=== PATIENT | female | born 1970 | race American Indian/Alaskan Native ===

== ENCOUNTER 2016-08-05 10:08 | Emergency (ER) | payer BC, OTHER ==
[2016-08-05 10:40] VITALS: BP 132/86
--- NOTE | 2016-08-05 15:21 | Emergency Department Report ---
Chief Complaint: Sore Throat Stated Complaint: HEADACHE/SORE THROAT/BODY ACHES Time Seen by Provider: 08/05/16 14:42 - HPI History of Present Illness: 46-year-old female presents today with sore throat, cold symptoms, body aches 2 days. Positive for fever, Tmax = 100. Positive for nasal congestion and painful swallowing. Tried Mucinex without relief. Denies sick contacts. Denies nausea, vomiting, shortness of breath, chest pain, abdominal pain. - ROS Review of Systems: Per HPI - Exam Vital Signs: Vital Signs 08/05/16 10:36 Temperature 98.5 F Pulse Rate 94 H Respiratory 20 Rate Blood Pressure 132/86 O2 Sat by Pulse 99 Oximetry Physical Exam: GENERAL: The patient is well-developed and well-nourished. Patient is in NAD. HEAD: Normocephalic. Atraumatic. EYES: PERRL. EARS: External auditory canals and tympanic membranes clear; hearing grossly intact. NOSE: Normal nasal mucosa with no nasal discharge. THROAT: No erythema, swelling or exudates. NECK: Supple, nontender, without lymphadenopathy. CHEST/LUNGS: Clear to auscultation throughout. HEART/CARDIOVASCULAR: Regular rate and rhythm. No murmurs, rubs or gallops. ABDOMEN: Abdomen is soft, nontender. No guarding or rebound tenderness. EXTREMITIES: Peripheral pulses intact. Capillary refill less than 2 seconds. NEURO: Alert and oriented x 3. Normal gait. MSE screening note: Focused history and physical exam performed. Due to findings the following was ordered: ED Disposition for MSE Disposition: MEDICAL SCREENING EXAM-LEFT Condition: Stable Referrals: PRIMARY CARE, [Primary Care Provider] - 3-5 Days
== END 2016-08-05 15:21 | disposition left against medical advice (07) ==
LOC: ED 10:08
DX: J02.9 Acute pharyngitis, unspecified (principal); M79.1 Myalgia; R50.9 Fever, unspecified; Z53.21 Procedure and treatment not carried out due to patient leaving prior to being seen by health care provider

== ENCOUNTER 2016-12-04 17:12 | Emergency (ER) | payer BC ==
[2016-12-04] MEDS ORDERED: MOTRIN ONE (17:19)
[2016-12-04] MEDS ORDERED: MOTRIN PO ONE (17:27)
[2016-12-04 19:10] LABS: Bilirubin,Urine NEG (Negative); Blood,Urine NEG (Negative); Ketones,Urine NEG (Negative); Leukocyte Esterase,Urine NEG (Negative); Nitrite,Urine NEG (Negative); Protein,Urine <15 mg/dL mg/dL (Negative); RBC,Urine < 1.0 /HPF (0.0-6.0); Urobilinogen,Urine < 2.0 mg/dL (<2.0)
[2016-12-04] MEDS ORDERED: ULTRAM PO ONE (19:19)
--- NOTE | 2016-12-04 19:44 | Emergency Department Report ---
ED Back Pain/Injury HPI - General Chief Complaint: Back Pain/Injury Stated Complaint: BACK PAIN Source: patient Limitations: No Limitations - History of Present Illness Initial Comments: 46-year-old female presents complaining of 2 days of left-sided back pain. Patient denies any fevers chills no nausea no vomiting. Denies any recent trauma. Denies any upper or lower extremity paresthesias. Denies any saddle paresthesias. Denies any bladder or bowel incontinence. Denies any falls. No direct trauma to the back reported by the patient. 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 Patient's pain is slightly worse with rotation of her trunk. Patient not on any blood thinners denies any associated shortness of breath chest pain nausea or vomiting associated with the pain. Denies any rash. MD Complaint: back pain Onset/Timin -: days(s) Similar Symptoms Previously: Yes Place: work Radiation: buttocks Severity: moderate Severity scale (0 -10): 7 Quality: aching Consistency: intermittent Worsens With: movement Context: while lifting, turning/twisting - Related Data Previous Rx's Medication Instructions Recorded Last Taken Type Cyclobenzaprine [Flexeril] 10 mg PO TID PRN #15 tablet 06/24/16 Unknown Rx Ibuprofen [Motrin 800 MG tab] 800 mg PO Q8HR PRN #25 tablet 06/24/16 Unknown Rx Cyclobenzaprine [Flexeril] 10 mg PO TID PRN #15 tablet 12/04/16 Unknown Rx Naproxen [Naprosyn TAB] 500 mg PO BID PRN #30 tablet 12/04/16 Unknown Rx Allergies Allergy/AdvReac Type Severity Reaction Status Date / Time acetaminophen [From Lortab] Allergy Itching Verified 06/24/16 01:43 hydrocodone bitartrate Allergy Itching Verified 06/24/16 01:43 [From Lortab] iodine Allergy Swelling Verified 06/24/16 01:43 ED Review of Systems ROS: Stated complaint: BACK PAIN Other details as noted in HPI Constitutional: denies: chills, fever Eyes: denies: eye pain, eye discharge, vision change ENT: denies: ear pain, throat pain Respiratory: denies: cough, shortness of breath, wheezing Cardiovascular: denies: chest pain, palpitations Endocrine: no symptoms reported Gastrointestinal: denies: abdominal pain, nausea, diarrhea Genitourinary: denies: urgency, dysuria, discharge Musculoskeletal: back pain. denies: joint swelling, arthralgia Skin: denies: rash, lesions Neurological: denies: headache, weakness, paresthesias Psychiatric: denies: anxiety, depression Hematological/Lymphatic: denies: easy bleeding, easy bruising ED Past Medical Hx - Surgical History Additional Surgical History: c section - Social History Smoking Status: Never Smoker Substance Use Type: None - Medications Home Medications: Home Medications Medication Instructions Recorded Confirmed Last Taken Type Cyclobenzaprine [Flexeril] 10 mg PO TID PRN #15 tablet 06/24/16 Unknown Rx Ibuprofen [Motrin 800 MG tab] 800 mg PO Q8HR PRN #25 tablet 06/24/16 Unknown Rx Cyclobenzaprine [Flexeril] 10 mg PO TID PRN #15 tablet 12/04/16 Unknown Rx Naproxen [Naprosyn TAB] 500 mg PO BID PRN #30 tablet 12/04/16 Unknown Rx ED Physical Exam - General Limitations: No Limitations General appearance: alert, in no apparent distress - Head Head exam: Present: atraumatic, normocephalic - Eye Eye exam: Present: normal appearance, PERRL, EOMI - ENT ENT exam: Present: mucous membranes moist - Neck Neck exam: Present: normal inspection - Respiratory Respiratory exam: Present: normal lung sounds bilaterally. Absent: respiratory distress - Cardiovascular Cardiovascular Exam: Present: regular rate, normal rhythm. Absent: systolic murmur, diastolic murmur, rubs, gallop - GI/Abdominal GI/Abdominal exam: Present: soft, normal bowel sounds - Extremities Exam Extremities exam: Present: normal inspection - Back Exam Back exam: Present: normal inspection, tenderness, paraspinal tenderness (mild left-sided lumbar paraspinal tenderness no midline tenderness no evidence of cellulitis no CVA tenderness on clinical exam. Range of motion lateral rotation and flexion and extension of back intact but slightly worse with rotation to the left) - Neurological Exam Neurological exam: Present: alert, oriented X3, CN II-XII intact, normal gait - Psychiatric Psychiatric exam: Present: normal affect, normal mood - Skin Skin exam: Present: warm, dry, intact, normal color. Absent: rash ED Course Vital Signs 12/04/16 12/04/16 12/04/16 17:15 19:24 21:45 Temperature 98.5 F 98.1 F Pulse Rate 102 H 69 Respiratory 20 18 20 Rate Blood Pressure 158/104 Blood Pressure 138/84 [Left] O2 Sat by Pulse 100 99 Oximetry ED Medical Decision Making - Lab Data Result diagrams: 12/04/16 19:38 - Medical Decision Making a/p: lower back pain/sciatica 1- will provide symptomatic relief with trial of NSAIDS,flexeril 2- no neurovascular deficits on PE, no saddle paraesthesias, no bladder overflow , no bowel incontience. Pt denies any fever, chill, dysruia or IV drug use. Pain likely from chronic degenerative spinal disease. 3- BMP and UA WNL Critical care attestation.: If time is entered above; I have spent that time in minutes in the direct care of this critically ill patient, excluding procedure time. ED Disposition Clinical Impression: Lower back pain Qualifiers: Chronicity: acute Back pain laterality: left Sciatica presence: with sciatica Sciatica laterality: sciatica of left side Qualified Code(s): M54.42 - Lumbago with sciatica, left side Disposition: DISCHARGED TO HOME OR SELFCARE Is pt being admited?: No Does the pt Need Aspirin: No Condition: Stable Instructions: Acute Low Back Pain (ED) Prescriptions: Cyclobenzaprine [Flexeril] 10 mg PO TID PRN #15 tablet PRN Reason: Muscle Spasm Naproxen [Naprosyn TAB] 500 mg PO BID PRN #30 tablet PRN Reason: Pain Referrals: [facility] [Outside] - 3-5 Days [facility] [Outside] - 3-5 Days RIGOBERTO KAMARA MD [Staff Physician] - 3-5 Days DULCE MARIA BROWN MD [Staff Physician] - 3-5 Days Forms: Accompanied Note, Work/School Release Form(ED) Time of Disposition: 21:32
[2016-12-04 20:39] LABS: Anion Gap 16 mmol/L; Blood Urea Nitrogen 11 mg/dL (7-17); Calcium 9.1 mg/dL (8.4-10.2); Carbon Dioxide 27 mmol/L (22-30); Chloride 100.9 mmol/L (98-107); Creatine Kinase 309 units/L (30-135); Glucose 80 mg/dL (65-100); Potassium 3.9 mmol/L (3.6-5.0); Sodium 140 mmol/L (137-145)
[2016-12-04 21:45] VITALS: BP 138/84
== END 2016-12-04 21:45 | disposition home or self-care (01) ==
LOC: ED 17:12
DX: M54.42 Lumbago with sciatica, left side (principal); Z88.8 Allergy status to other drugs, medicaments and biological substances; Z91.02 Food additives allergy status
CPT/HCPCS: 36415; 80048; 81001; 82550; 99283

== ENCOUNTER 2016-12-25 09:14 | Outpatient (CLI) | payer BC ==
--- NOTE | 2016-12-25 11:03 | Mammography Report ---
Bilateral mammogram: No previous studies are labeled. CAD study utilized. Findings: Predominance adipose tissue bilaterally. 2 cm circumscribed focal asymmetry noted at left posterior breast and at subareolar area right breast. No microcalcifications appear normal axilla. Impression: Degenerative circumscribed density right and left breast. Recommend comparison with previous study. If previous studies not available spot mag and sonographic examination is advised. BI-RADS CATEGORY: 0 = Needs additional imaging evaluation ACR BI-RADS MAMMOGRAPHIC CODES: 0 = Needs additional imaging evaluation; 1 = Negative; 2 = Benign; 3 = Probably benign; 4 = Suspicious; 5 = Malignant; 6 = Known biopsy-proven malignancy COMMENT: 1. Dense breast tissue, i.e., adenosis, fibrocystic changes, etc., may obscure an underlying neoplasm. 2. Approximately 10% of cancers are not detected with mammography. 3. A negative mammography report should not delay biopsy if a clinically suspicious mass is present. COMMENT: Patient follow-up letters are generated in [place]. Benign findings. Annual followup recommended.
== END 2016-12-25 09:15 | disposition home or self-care (01) ==
LOC: MAMMO 09:14
PROVIDERS: ATTEND Obstetrics & Gynecology
DX: Z12.31 Encounter for screening mammogram for malignant neoplasm of breast (principal)
CPT/HCPCS: 77067; G0202

== ENCOUNTER 2017-01-11 08:07 | Outpatient (CLI) | payer BC ==
--- NOTE | 2017-01-11 08:55 | Mammography Report ---
Bilateral mammogram: Based on bilateral asymmetries identified on recent screening exam of December 25 additional spot cc compression imaging of each breast is performed. No persistent asymmetry identified. The fibroglandular pattern in the area of concern appears unremarkable bilaterally. Impression: Unremarkable exam. Recommendation: Annual mammogram followup. BI-RADS CATEGORY: 1 = Negative ACR BI-RADS MAMMOGRAPHIC CODES: 0 = Needs additional imaging evaluation; 1 = Negative; 2 = Benign; 3 = Probably benign; 4 = Suspicious; 5 = Malignant; 6 = Known biopsy-proven malignancy COMMENT: 1. Dense breast tissue, i.e., adenosis, fibrocystic changes, etc., may obscure an underlying neoplasm. 2. Approximately 10% of cancers are not detected with mammography. 3. A negative mammography report should not delay biopsy if a clinically suspicious mass is present.
--- NOTE | 2017-01-11 09:28 | Ultrasound Report ---
ULTRASOUND PELVIS COMPLETE - TRANSABDOMINAL AND TRANSVAGINAL: INDICATION: DUB. History of fibroids. COMPARISON: None similar. FINDINGS: Transabdominal and transvaginal pelvic sonography performed in this patient with LMP of 12/16/2016 demonstrates a 13 x 4.3 x 5.5 cm anteverted uterus. At least 2 fibroids superiorly to the right, the larger at the fundus 1.8 x 1.5 cm, while the smaller anteriorly is approximately 1.3 x 0.8 cm, image 14. Few minimal nonspecific floating echoes within the urinary bladder/possible debris. Approximately 1 cm nabothian cyst. No significant pelvic free fluid. Physiologic ovaries, approximately 2.5 x 1.3 x 1.4 cm on the right and 1.9 x 1.3 x 1.3 cm on the left. CONCLUSION: No acute pelvic sonographic abnormality with 2 small fibroids incidentally noted and few other findings, as above. Please correlate. Thank you for the opportunity to participate in this patient's care.
== END 2017-01-11 08:08 | disposition home or self-care (01) ==
LOC: US 08:07
PROVIDERS: ATTEND Obstetrics & Gynecology
DX: N92.0 Excessive and frequent menstruation with regular cycle (principal); R92.2 Inconclusive mammogram
CPT/HCPCS: 76830; 76856; G0204; 77066

== ENCOUNTER 2017-01-27 13:43 | Emergency (ER) | payer BC ==
[2017-01-27] MEDS ORDERED: REGLAN IV ONE (17:04)
[2017-01-27] MEDS ORDERED: MAGNESIUM SULFATE 2GM/50ML 2 GM/50 ML BAG IV ONE (17:04)
[2017-01-27] MEDS ORDERED: BENADRYL IV ONE (17:04)
[2017-01-27] MEDS ORDERED: TORADOL IV ONE (17:04)
--- NOTE | 2017-01-27 17:05 | Emergency Department Report ---
ED General Adult HPI - General Chief complaint: Headache Stated complaint: HEADACHE AND PAIN IN RIGHT EYE Time Seen by Provider: 01/27/17 16:55 Source: patient, RN notes reviewed Mode of arrival: Ambulatory Limitations: No Limitations - History of Present Illness Initial comments: This is a 46-year-old female. She is previously unknown to me. The patient reports that she is not . She denies chronic medical conditions with the exception of chronic headaches. She reports that she gets headaches twice a week. She presents to the ER complaining of her typical migraine headache. The headache is throbbing and right-sided and retro-orbital. It is not sudden or thunderclap in nature. It did not reach maximal intensity within an hour. It is similar to prior headaches only more intense. She describes right-sided retro-orbital pain. She has sensitivity to lights and sounds. There is no neck pain, neck stiffness, loss of vision, weakness or numbness. It is not the worse headache of her life, she reports a headache that was worse a few months ago. -: Gradual Location: head, face, eyes Consistency: constant Improves with: rest Worsens with: other (exposure to light and sound) Associated Symptoms: headaches - Related Data Previous Rx's Medication Instructions Recorded Last Taken Type Cyclobenzaprine [Flexeril] 10 mg PO TID PRN #15 tablet 06/24/16 Unknown Rx Ibuprofen [Motrin 800 MG tab] 800 mg PO Q8HR PRN #25 tablet 06/24/16 Unknown Rx Cyclobenzaprine [Flexeril] 10 mg PO TID PRN #15 tablet 12/04/16 Unknown Rx Naproxen [Naprosyn TAB] 500 mg PO BID PRN #30 tablet 12/04/16 Unknown Rx Allergies Allergy/AdvReac Type Severity Reaction Status Date / Time acetaminophen [From Lortab] Allergy Itching Verified 01/27/17 14:02 hydrocodone bitartrate Allergy Itching Verified 01/27/17 14:02 [From Lortab] iodine Allergy Swelling Verified 01/27/17 14:02 ED Review of Systems ROS: Stated complaint: HEADACHE AND PAIN IN RIGHT EYE Other details as noted in HPI Constitutional: malaise. denies: fever Eyes: denies: eye discharge ENT: denies: epistaxis Respiratory: denies: cough Cardiovascular: denies: chest pain Gastrointestinal: denies: vomiting Genitourinary: as per HPI Musculoskeletal: as per HPI Skin: as per HPI Neurological: headache Psychiatric: as per HPI ED Past Medical Hx - Past Medical History Hx Headaches / Migraines: Yes - Surgical History Additional Surgical History: c section X 4. TUBAL LIGATION. TONSILLECTOMY - Social History Smoking Status: Never Smoker Substance Use Type: Alcohol - Medications Home Medications: Home Medications Medication Instructions Recorded Confirmed Last Taken Type Cyclobenzaprine [Flexeril] 10 mg PO TID PRN #15 tablet 06/24/16 Unknown Rx Ibuprofen [Motrin 800 MG tab] 800 mg PO Q8HR PRN #25 tablet 06/24/16 Unknown Rx Cyclobenzaprine [Flexeril] 10 mg PO TID PRN #15 tablet 12/04/16 Unknown Rx Naproxen [Naprosyn TAB] 500 mg PO BID PRN #30 tablet 12/04/16 Unknown Rx ED Physical Exam - General Limitations: No Limitations General appearance: alert, in no apparent distress - Head Head exam: Present: atraumatic, normocephalic - Eye Eye exam: Present: normal appearance, PERRL, EOMI, other (visual acuity intact to finger counting, color perception, reading at a close distance). Absent: nystagmus - ENT ENT exam: Present: normal exam, normal orophraynx, mucous membranes moist, normal external ear exam - Neck Neck exam: Present: normal inspection, full ROM. Absent: tenderness, meningismus - Respiratory Respiratory exam: Present: normal lung sounds bilaterally. Absent: respiratory distress, wheezes, rales, rhonchi, stridor, chest wall tenderness, accessory muscle use, decreased breath sounds, prolonged expiratory - Cardiovascular Cardiovascular Exam: Present: regular rate, normal rhythm, normal heart sounds. Absent: bradycardia, tachycardia, irregular rhythm, systolic murmur, diastolic murmur, rubs, gallop - GI/Abdominal GI/Abdominal exam: Present: soft, normal bowel sounds. Absent: distended, tenderness, guarding, rebound, rigid, pulsatile mass - Extremities Exam Extremities exam: Present: normal inspection, full ROM, normal capillary refill. Absent: tenderness, pedal edema, joint swelling, calf tenderness - Back Exam Back exam: Present: normal inspection, full ROM. Absent: tenderness, CVA tenderness (R), CVA tenderness (L), muscle spasm, paraspinal tenderness, vertebral tenderness - Neurological Exam Neurological exam: Present: alert, oriented X3, normal gait, other (Extraocular movements intact. Tongue midline. No facial droop. Facial sensation intact to light touch in the V1, V2, V3 distribution bilaterally. 5 and 5 strength in 4 extremities.. Sensation is intact to light touch in 4 extremities.). Absent : motor sensory deficit - Psychiatric Psychiatric exam: Present: normal affect, normal mood - Skin Skin exam: Present: warm, dry, intact, normal color. Absent: rash ED Course Vital Signs 01/27/17 01/27/17 13:59 17:43 Temperature 98.5 F Pulse Rate 87 66 Respiratory 18 16 Rate Blood Pressure 137/94 Blood Pressure 146/85 [Left] O2 Sat by Pulse 98 99 Oximetry - Reevaluation(s) Reevaluation #1: 01/27/17 17:43 Differential diagnosis: Migraine headache, tension headache, cluster headache, multifactorial headache Assessment and plan: 46-year-old female with probable migraine/cluster headache. She is afebrile with reassuring vital signs, has a GCS of 15, with an NIH score of 0, and is speaking on a cellular phone without difficulty. She will be treated symptomatically. We will reassess after medications have been administered. Reevaluation #2: 01/27/17 18:24 the patient is reassessed. She is sleeping comfortably. She rates her headache as a "0 out of 10." She reports that her headache has completely resolved. Her repeat neurologic examination is unremarkable and she walks with steady gait. She will be discharged with instructions to follow up with outpatient primary care and/or neurology specialist. ED Medical Decision Making - Lab Data Vital Signs 01/27/17 01/27/17 13:59 17:43 Temperature 98.5 F Pulse Rate 87 66 Respiratory 18 16 Rate Blood Pressure 137/94 Blood Pressure 146/85 [Left] O2 Sat by Pulse 98 99 Oximetry Critical care attestation.: If time is entered above; I have spent that time in minutes in the direct care of this critically ill patient, excluding procedure time. ED Disposition Clinical Impression: Headache Disposition: DC-01 TO HOME OR SELFCARE Is pt being admited?: No Does the pt Need Aspirin: No Condition: Stable Instructions: Cluster Headache (ED) Additional Instructions: Take Motrin, 600 mg every 6 hours with food as needed for headache. Follow up with either primary care doctor or neurology specialist. Follow-up with the primary care doctor or neurology specialist within the next 2-3 weeks. Avoid consumption of caffeine. Return to the ER right away with new pain, worsened pain, migration of pain, fevers, chills, intractable nausea or vomiting, confusion, inability to tolerate liquid feeds, new, worsening or different symptoms. Return to the ER right away with weakness/ numbness/unsteady gait. Referrals: ANTHONY PEREZ MD [Staff Physician] - 3-5 Days BRICE ROY MD [Staff Physician] - 3-5 Days PRIMARY MD VICTOR HUGO [Primary Care Provider] - 3-5 Days THERESA MAGALLON MD [Staff Physician] - 3-5 Days Forms: Work/School Release Form(ED)
[2017-01-27 17:43] VITALS: BP 146/85
== END 2017-01-27 18:42 | disposition home or self-care (01) ==
LOC: ED 13:43
DX: R51 Headache (principal)
CPT/HCPCS: 96365; 96375; 99283; J1200; J1885; J2765; J2930; J3475

== ENCOUNTER 2017-04-07 10:13 | Emergency (ER) | payer BC ==
[2017-04-07 10:42] VITALS: BP 157/103
== END 2017-04-07 12:50 | disposition left against medical advice (07) ==
LOC: ED 10:13
DX: R51 Headache (principal); Z53.21 Procedure and treatment not carried out due to patient leaving prior to being seen by health care provider

== ENCOUNTER 2017-06-23 21:47 | Emergency (ER) | payer BC ==
[2017-06-24 03:53] VITALS: BP 136/76
[2017-06-24] MEDS ORDERED: MOTRIN PO ONE (03:54)
[2017-06-24] MEDS ORDERED: AUGMENTIN 875 MG PO ONE (03:54)
--- NOTE | 2017-06-24 03:55 | Emergency Department Report ---
- General Chief Complaint: Extremity Injury, Upper Stated Complaint: FLU LIKE SYMPTOMS Time Seen by Provider: 06/24/17 02:31 Source: patient Mode of arrival: Ambulatory Limitations: No Limitations - History of Present Illness Initial Comments: 47-year-old female past medical history headaches, migraines presents with complaint of one day of earache sore throat and body aches. States she is concerned she may have the flu. Patient is awake alert and oriented 3 not in acute distress. Denies chest pain shortness of breath palpitations abdominal pain vomiting increased urinary frequency or dysuria. Patient states that she felt somewhat nauseous earlier today. lmp 04/09/17 Complaint: fever Onset/Timin -: days(s) Severity: moderate Quality: aching Consistency: constant Improves With: nothing Worsens With: nothing Associated Symptoms: denies other symptoms, sore throat Treatments Prior to Arrival: none - Related Data Previous Rx's Medication Instructions Recorded Last Taken Type Cyclobenzaprine [Flexeril] 10 mg PO TID PRN #15 tablet 06/24/16 Unknown Rx Ibuprofen [Motrin 800 MG tab] 800 mg PO Q8HR PRN #25 tablet 06/24/16 Unknown Rx Cyclobenzaprine [Flexeril] 10 mg PO TID PRN #15 tablet 12/04/16 Unknown Rx Naproxen [Naprosyn TAB] 500 mg PO BID PRN #30 tablet 12/04/16 Unknown Rx Amoxicillin/Potassium Clav 1 each PO BID #14 tablet 06/24/17 Unknown Rx [Augmentin 875-125 Tablet] Ibuprofen [Motrin] 800 mg PO Q8HR PRN #30 tablet 06/24/17 Unknown Rx Allergies Allergy/AdvReac Type Severity Reaction Status Date / Time acetaminophen [From Lortab] Allergy Itching Verified 04/07/17 10:40 hydrocodone bitartrate Allergy Itching Verified 04/07/17 10:40 [From Lortab] iodine Allergy Swelling Verified 04/07/17 10:40 ED Review of Systems ROS: Stated complaint: FLU LIKE SYMPTOMS Other details as noted in HPI Constitutional: denies: chills, fever Eyes: denies: eye pain, eye discharge, vision change ENT: ear pain (left ear). denies: throat pain Respiratory: denies: cough, shortness of breath, wheezing Cardiovascular: denies: chest pain, palpitations Endocrine: no symptoms reported Gastrointestinal: denies: abdominal pain, nausea, diarrhea Genitourinary: denies: urgency, dysuria, discharge Musculoskeletal: denies: back pain, joint swelling, arthralgia Skin: denies: rash, lesions Neurological: denies: headache, weakness, paresthesias Psychiatric: denies: anxiety, depression Hematological/Lymphatic: denies: easy bleeding, easy bruising ED Past Medical Hx - Past Medical History Previous Medical History?: Yes Hx Headaches / Migraines: Yes - Surgical History Past Surgical History?: Yes Additional Surgical History: c section X 4. TUBAL LIGATION. TONSILLECTOMY - Social History Smoking Status: Never Smoker - Medications Home Medications: Home Medications Medication Instructions Recorded Confirmed Last Taken Type Cyclobenzaprine [Flexeril] 10 mg PO TID PRN #15 tablet 06/24/16 Unknown Rx Ibuprofen [Motrin 800 MG tab] 800 mg PO Q8HR PRN #25 tablet 06/24/16 Unknown Rx Cyclobenzaprine [Flexeril] 10 mg PO TID PRN #15 tablet 12/04/16 Unknown Rx Naproxen [Naprosyn TAB] 500 mg PO BID PRN #30 tablet 12/04/16 Unknown Rx Amoxicillin/Potassium Clav 1 each PO BID #14 tablet 06/24/17 Unknown Rx [Augmentin 875-125 Tablet] Ibuprofen [Motrin] 800 mg PO Q8HR PRN #30 tablet 06/24/17 Unknown Rx ED Physical Exam - General Limitations: No Limitations General appearance: alert, in no apparent distress - Head Head exam: Present: atraumatic, normocephalic - Eye Eye exam: Present: normal appearance, PERRL, EOMI - ENT ENT exam: Present: mucous membranes moist - Expanded ENT Exam Expanded TM/Canal exam: Erythema: Right TM, Left TM (both tympanic membranes injected, no clinical signs of mastoiditis on exam), Bulging: Right TM Mouth exam: Present: normal external inspection Teeth exam: Present: normal inspection Throat exam: Positive: normal inspection - Neck Neck exam: Present: normal inspection, full ROM - Respiratory Respiratory exam: Present: normal lung sounds bilaterally. Absent: respiratory distress - Cardiovascular Cardiovascular Exam: Present: regular rate, normal rhythm. Absent: systolic murmur, diastolic murmur, rubs, gallop - GI/Abdominal GI/Abdominal exam: Present: soft, normal bowel sounds - Extremities Exam Extremities exam: Present: normal inspection - Back Exam Back exam: Present: normal inspection - Neurological Exam Neurological exam: Present: alert, oriented X3 - Psychiatric Psychiatric exam: Present: normal affect, normal mood - Skin Skin exam: Present: warm, dry, intact, normal color. Absent: rash ED Course Vital Signs 06/23/17 06/24/17 23:22 03:50 Temperature 99.7 F H 98.7 F Pulse Rate 103 H 95 H Respiratory 16 18 Rate Blood Pressure 136/94 Blood Pressure 136/76 [Left] O2 Sat by Pulse 96 100 Oximetry ED Medical Decision Making - Medical Decision Making A/P: Right-sided otitis media 1-empiric tx with Augmentin, motrin PRN 2-follow up with primary care doctor 3-flu swab negative Critical care attestation.: If time is entered above; I have spent that time in minutes in the direct care of this critically ill patient, excluding procedure time. ED Disposition Clinical Impression: Otitis media Qualifiers: Otitis media type: suppurative Chronicity: acute Laterality: right Recurrence: not specified as recurrent Spontaneous tympanic membrane rupture: without spontaneous rupture Qualified Code(s): H66.001 - Acute suppurative otitis media without spontaneous rupture of ear drum, right ear Disposition: - TO HOME OR SELFCARE Is pt being admited?: No Does the pt Need Aspirin: No Condition: Stable Instructions: Otitis Media (ED) Prescriptions: Amoxicillin/Potassium Clav [Augmentin 875-125 Tablet] 1 each PO BID #14 tablet Ibuprofen [Motrin] 800 mg PO Q8HR PRN #30 tablet PRN Reason: Pain Referrals: THERESA MAGALLON MD [Staff Physician] - 3-[address] [facility] [place] [Outside] - 3-5 Days [facility] [Outside] - 3-5 Days Forms: Work/School Release Form(ED) Time of Disposition: 04:25
== END 2017-06-24 05:00 | disposition home or self-care (01) ==
LOC: ED 21:47
DX: H66.001 Acute suppurative otitis media without spontaneous rupture of ear drum, right ear (principal); G43.909 Migraine, unspecified, not intractable, without status migrainosus
CPT/HCPCS: 87400; 99282

== ENCOUNTER 2017-09-20 23:35 | Emergency (ER) | payer SELFPAY ==
[2017-09-21 02:10] VITALS: BP 154/88
[2017-09-21 02:51] LABS: Basophils % (Auto) 0.6 % (0.0-1.8); Eosinophils # (Auto) 0.2 K/mm3 (0.0-0.4); Eosinophils % (Auto) 2.5 % (0.0-4.3); Hematocrit 36.2 % (30.3-42.9); Hemoglobin 11.7 gm/dl (10.1-14.3); Lymphocytes # (Auto) 2.5 K/mm3 (1.2-5.4); Lymphocytes % (Auto) 32.5 % (13.4-35.0); Mean Corpuscular HGB Conc 32 % (30-34); Mean Corpuscular Hemoglobin 26 pg (28-32); Mean Corpuscular Volume 81 fl (79-97); Monocytes # (Auto) 0.9 K/mm3 (0.0-0.8); Monocytes % (Auto) 11.5 % (0.0-7.3); Platelet Count 230 K/mm3 (140-440); Red Blood Count 4.46 M/mm3 (3.65-5.03); Red Cell Distribution Width 16.5 % (13.2-15.2)
[2017-09-21 12:41] LABS: Alanine Aminotransferase 13 units/L (7-56); BUN/Creatinine Ratio 15; Blood Urea Nitrogen 12 mg/dL (7-17); Calcium 8.9 mg/dL (8.4-10.2); Hemolysis Index 4; Lipase 38 units/L (13-60)
== END 2017-09-21 02:45 | disposition left against medical advice (07) ==
LOC: ED 23:35
DX: R10.9 Unspecified abdominal pain (principal); Z53.21 Procedure and treatment not carried out due to patient leaving prior to being seen by health care provider
CPT/HCPCS: 36415; 80053; 83690; 84703; 85025

== ENCOUNTER 2018-01-19 18:01 | Emergency (ER) | payer SELFPAY ==
[2018-01-19 18:27] VITALS: BP 133/96
--- NOTE | 2018-01-19 19:04 | XRay Report ---
FINAL REPORT PROCEDURE: XR SHOULDER 2+V RT TECHNIQUE: Right shoulder, three views HISTORY: right shoulder injury and swelling COMPARISON: No prior studies are available for comparison. FINDINGS: No acute fracture or dislocation is seen. No focal osseous lesions. IMPRESSION: No acute osseous abnormality is identified
--- NOTE | 2018-01-19 20:06 | Emergency Department Report ---
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 denies: numbness, paresthesias ED Past Medical Hx - Past Medical History Previous Medical History?: Yes Hx Headaches / Migraines: Yes - Surgical History Past Surgical History?: Yes Additional Surgical History: c section X 4. TUBAL LIGATION. TONSILLECTOMY - Social History Smoking Status: Never Smoker Substance Use Type: Alcohol - Medications Home Medications: Home Medications Medication Instructions Recorded Confirmed Last Taken Type Cyclobenzaprine [Flexeril] 10 mg PO TID PRN #15 tablet 06/24/16 Unknown Rx Ibuprofen [Motrin 800 MG tab] 800 mg PO Q8HR PRN #25 tablet 06/24/16 Unknown Rx Cyclobenzaprine [Flexeril] 10 mg PO TID PRN #15 tablet 12/04/16 Unknown Rx Naproxen [Naprosyn TAB] 500 mg PO BID PRN #30 tablet 12/04/16 Unknown Rx Amoxicillin/Potassium Clav 1 each PO BID #14 tablet 06/24/17 Unknown Rx [Augmentin 875-125 Tablet] Ibuprofen [Motrin] 800 mg PO Q8HR PRN #30 tablet 06/24/17 Unknown Rx Ibuprofen 800 mg PO QID 5 Days #20 tablet 01/19/18 Unknown Rx Upper Extremity Exam - Exam General: Vital signs noted. No distress. Alert and acting appropriately. Shoulder Exam: Yes Shoulder Tenderness, Yes Normal Range of Motion in Shoulder ( with much effort), Yes AC Joint Tenderness, No Clavicle Tenderness, No Shoulder Deformity Arm Exam: No Arm/Humerus Tenderness, No Arm Deformity Elbow: Yes Normal Range of Motion in Elbow, No Elbow Tenderness, No Elbow Deformity Forearm: No Forearm Tenderness, No Forearm Deformity, No Pain with Pronation, No Pain with Supination Wrist: Yes Normal ROM in Wrist, No Wrist Tenderness, No Wrist Deformity, No Snuffbox Tenderness ED Course Vital Signs 01/19/18 18:23 Temperature 97.8 F Pulse Rate 83 Respiratory 18 Rate Blood Pressure 133/96 O2 Sat by Pulse 98 Oximetry ED Medical Decision Making - Medical Decision Making Right rotator cuff injury [facility] Prescribed ibuprofen. Placed in sling. Referred orthopedic surgeon. Right shoulder radiographs according to radiologist report, no acute process Critical care attestation.: If time is entered above; I have spent that time in minutes in the direct care of this critically ill patient, excluding procedure time. ED Disposition Clinical Impression: Injury of right rotator cuff Disposition: DC-01 TO HOME OR SELFCARE Is pt being admited?: No Does the pt Need Aspirin: No Condition: Stable Instructions: Rotator Cuff Injury (ED) Prescriptions: Ibuprofen 800 mg PO QID 5 Days #20 tablet Referrals: DULCE MARIA BROWN MD [Staff Physician] - 3-5 Days Forms: Work/School Release Form(ED)
== END 2018-01-19 20:12 | disposition home or self-care (01) ==
LOC: ED 18:01
DX: S49.91XA Unspecified injury of right shoulder and upper arm, initial encounter (principal); G43.909 Migraine, unspecified, not intractable, without status migrainosus; X58.XXXA Exposure to other specified factors, initial encounter; Y93.89 Activity, other specified; Y92.89 Other specified places as the place of occurrence of the external cause; Y99.8 Other external cause status
CPT/HCPCS: 99284

== ENCOUNTER 2018-05-01 17:06 | Emergency (ER) | payer OTHER ==
[2018-05-01 20:27] LABS: Basophils # (Auto) 0.1 K/mm3 (0.0-0.1); Eosinophils # (Auto) 0.1 K/mm3 (0.0-0.4); Eosinophils % (Auto) 1.8 % (0.0-4.3); Hematocrit 35.1 % (30.3-42.9); Hemoglobin 11.4 gm/dl (10.1-14.3); Lymphocytes % (Auto) 25.5 % (13.4-35.0); Mean Corpuscular HGB Conc 32 % (30-34); Mean Corpuscular Volume 79 fl (79-97); Monocytes # (Auto) 0.8 K/mm3 (0.0-0.8); Monocytes % (Auto) 10.7 % (0.0-7.3); Platelet Count 246 K/mm3 (140-440); Red Blood Count 4.42 M/mm3 (3.65-5.03); Red Cell Distribution Width 16.3 % (13.2-15.2)
[2018-05-01 20:43] LABS: Bilirubin,Urine NEG (Negative); Blood,Urine NEG (Negative); Color,Urine Straw (Yellow); Protein,Urine <15 mg/dL mg/dL (Negative); Urobilinogen,Urine < 2.0 mg/dL (<2.0); WBC,Urine < 1.0 /HPF (0.0-6.0)
[2018-05-01 20:43] LABS: Mean Corpuscular Hemoglobin 26 pg (28-32)
[2018-05-01 20:50] LABS: Alanine Aminotransferase 14 units/L (7-56); Albumin 4.4 g/dL (3.9-5); BUN/Creatinine Ratio 17; Blood Urea Nitrogen 12 mg/dL (7-17); Calcium 9.7 mg/dL (8.4-10.2); Hemolysis Index 5
[2018-05-01] MEDS ORDERED: MORPHINE IV ONE (21:06)
--- NOTE | 2018-05-01 21:06 | Emergency Department Report ---
HPI - General Chief Complaint: Abdominal Pain Time Seen by Provider: 05/01/18 19:58 - HPI HPI: 48-year-old female presents to the emergency department with complaint of lower abdominal pain that started earlier today and now has started to radiate down into the rectum. She denies any fever, nausea, vomiting , vaginal rectal bleeding, vaginal discharge, dysuria. She has not taken anything for her symptoms prior to presentation. She has a history of migraine headaches, previous 4, tubal ligation. She presents with some elevated blood pressure and says that she's been told she had elevated blood pressure in the past but it mostly as when she is in an emergency department setting. She does not have a primary care physician. She denies any tobacco or illicit drug use or abuse. No recent travel or sick contacts at home. ED Past Medical Hx - Past Medical History Hx Hypertension: Yes Hx Headaches / Migraines: Yes - Surgical History Past Surgical History?: Yes Additional Surgical History: c section X 4. TUBAL LIGATION. TONSILLECTOMY - Social History Smoking Status: Never Smoker Substance Use Type: None - Medications Home Medications: Home Medications Medication Instructions Recorded Confirmed Last Taken Type Omeprazole 20 mg PO QDAY #20 tablet. 05/02/18 Unknown Rx traMADol [Ultram 50 MG tab] 50 mg PO Q6HR PRN #10 tablet 05/02/18 Unknown Rx ED Review of Systems ROS: Stated complaint: LOWER STOMACH PAIN Other details as noted in HPI Comment: All other systems reviewed and negative Constitutional: denies: chills, fever Eyes: denies: eye pain, eye discharge, vision change ENT: denies: ear pain, throat pain Respiratory: denies: cough, shortness of breath, wheezing Cardiovascular: denies: chest pain, palpitations Gastrointestinal: abdominal pain, other (rectal pain). denies: vomiting Genitourinary: denies: dysuria, discharge Musculoskeletal: denies: back pain, arthralgia Skin: denies: rash, change in color Neurological: denies: headache, weakness Physical Exam - Physical Exam Vital Signs: Vital Signs 05/01/18 05/01/18 05/01/18 17:17 20:33 20:36 Temperature 98.2 F 98.5 F Pulse Rate 96 H 67 Respiratory 16 20 20 Rate Blood Pressure 168/92 Blood Pressure 169/93 [Right] O2 Sat by Pulse 99 98 98 Oximetry Physical Exam: GENERAL: The patient is well-developed well-nourished. HENT: Normocephalic. Atraumatic. Patient has moist mucous membranes. EYES: Extraocular motions are intact. Pupils equal reactive to light bilaterally. NECK: Supple. Trachea is midline. CHEST/LUNGS: Clear to auscultation. There is no respiratory distress noted. HEART/CARDIOVASCULAR: Regular. There is no tachycardia. There is no murmur. ABDOMEN: Abdomen is soft. Lower abdominal tenderness to palpation. No guarding. Patient has normal bowel sounds. There is no abdominal distention. SKIN: Skin is warm and dry. NEURO: The patient is awake, alert, and oriented. The patient is cooperative. The patient has no focal neurologic deficits. The patient has normal speech. MUSCULOSKELETAL: There is no tenderness or deformity. There is no limitation range of motion. There is no evidence of acute injury. RECTAL: Deferred ED Course Vital Signs 05/01/18 05/01/18 05/01/18 17:17 20:33 20:36 Temperature 98.2 F 98.5 F Pulse Rate 96 H 67 Respiratory 16 20 20 Rate Blood Pressure 168/92 Blood Pressure 169/93 [Right] O2 Sat by Pulse 99 98 98 Oximetry ED Medical Decision Making - Lab Data Result diagrams: 05/01/18 20:12 05/01/18 20:12 - Radiology Data Radiology results: report reviewed, image reviewed interpreted by me: Abdominal x-ray shows nonspecific nonobstructive bowel gas CT of the abdomen and pelvis with IV contrast was read by radiology as having the impression: 1. Small collapsed hiatal hernia with mild thickening of the visualized distal esophagitis which may represent postinflammatory change or reflux esophagitis in the appropriate clinical setting 2. No evidence for acute appendicitis, bowel obstruction, colitis or diverticulitis 3. No evidence for renal stone disease or a protracted uropathy 4. Elongation of the right lobe of the liver in keeping with hepatomegaly versus Yola's lobe, an anatomic variant 5. No free fluid, free air, mass lesions or lymphadenopathy - Medical Decision Making Patient presents with some lower abdominal pain that radiates towards her rectum. The abdomen is nontoxic and nonrigid. Abdominal x-ray shows nonspecific nonobstructive bowel gas. CT shows a collapsed hiatal hernia with some signs of possible reflux esophagitis. Labs are mostly unremarkable. Vital signs stable throughout her ED course. Patient was given some fluids, nausea medication and pain medication and reevaluated multiple times for multiple hours. She is improved. She appears safe for discharge home. She has been given a referral for follow-up with gastroenterology, primary care. She will return to the ER with any worsening of her symptoms or any acute distress. - Differential Diagnosis gastritis, colitis, diverticulitis, hemorrhoids Critical Care Time: No Critical care attestation.: If time is entered above; I have spent that time in minutes in the direct care of this critically ill patient, excluding procedure time. ED Disposition Clinical Impression: Hiatal hernia, Reflux esophagitis Abdominal pain Qualifiers: Abdominal location: unspecified location Qualified Code(s): R10.9 - Unspecified abdominal pain Disposition: TO HOME OR SELFCARE Is pt being admited?: No Condition: Stable Instructions: Gastroesophageal Reflux Disease (ED), Abdominal Pain (ED) Additional Instructions: Please follow-up with a primary care physician in the next few days. I have given you a referral for a local gatekeeper, Dr. Nam, to follow up regarding your abdominal pain and your CT findings of a hiatal hernia and some reflux. Return to the emergency Department with any worsening of your symptoms or any acute distress.You have been prescribed a medication that is sedating and therefore should not be taken prior to driving, working, and responsible for children and in no way should be mixed with alcohol of any quantity. Prescriptions: Omeprazole 20 mg PO QDAY #20 tablet. traMADol [Ultram 50 MG tab] 50 mg PO Q6HR PRN #10 tablet PRN Reason: Pain Referrals: CHEMA GAY MD [Primary Care Provider] - 3-5 Days ANAND NAM MD [Staff Physician] - 3-5 Days HARI MAHAN MD [Staff Physician] - 3-5 Days JUSTA DEVI MD [Staff Physician] - 3-5 Days Forms: Work/School Release Form(ED) Time of Disposition: 02:42
[2018-05-01] MEDS ORDERED: ZOFRAN IV ONE (21:33)
[2018-05-01] MEDS ORDERED: ZOFRAN ONE (21:36)
--- NOTE | 2018-05-01 22:25 | XRay Report ---
FINAL REPORT PROCEDURE: XR ABDOMEN 2V TECHNIQUE: AP supine portable radiograph of the abdomen was obtained at 05/01/2018 21:51 (EST) . HISTORY: Abd pain COMPARISON: No prior studies are available for comparison. FINDINGS: Bowel gas pattern: Nonobstructive. Masses or calcifications: None. Bony structures: Normal. Other: None. IMPRESSION: No acute abnormality
[2018-05-02 03:54] VITALS: BP 139/78
--- NOTE | 2018-05-04 10:31 | Cat Scan Report ---
FINAL REPORT EXAM: CT ABDOMEN AND PELVIS WITH INTRAVENOUS CONTRAST HISTORY: Abdominal pain. TECHNIQUE: Spiral axial CT images are obtained through the abdomen and pelvis without the administration of oral contrast and with the administration of 100 cc of Omnipaque 300 intravenous contrast. Additional coronal and sagittal reformatted images are reconstructed. COMPARISON: None available. FINDINGS: GASTROINTESTINAL TRACT: There is a small collapsed hiatal hernia with mild thickening of the visualized distal esophagus which may represent postinflammatory change or reflux esophagitis in the appropriate clinical setting. There are no stigmata of bowel obstruction, colitis or diverticulitis. The appendix is not visualized (presumed prior appendectomy), and there is no secondary sign of acute appendicitis seen. GENITOURINARY SYSTEM: The kidneys are unremarkable. There is no ureteral calculus or stigmata of obstructive uropathy. The urinary bladder is grossly unremarkable for a non-dedicated exam. CT ABDOMEN: There is elongation of the right lobe of the liver (up to 18.4 cm CC) in keeping with hepatomegaly versus Maryjo's lobe (anatomical variant). The spleen, pancreas, adrenal glands, gallbladder, aorta, and inferior vena cava are within normal limits for a noncontrast CT scan. There is no intra-abdominal or retroperitoneal lymphadenopathy, free fluid, or free air seen. No abdominal herniation is noted. CT PELVIS: The uterus and adnexa are within normal limits for a CT scan. The visualized bony structures are within normal limits. No pelvic sidewall or inguinal lymphadenopathy is seen. No inguinal herniation is noted. No free fluid or free air is seen. LUNG BASES: The lung bases are clear. IMPRESSION: 1. SMALL COLLAPSED HIATAL HERNIA WITH MILD THICKENING OF THE VISUALIZED DISTAL ESOPHAGUS WHICH MAY REPRESENT POSTINFLAMMATORY CHANGE OR REFLUX ESOPHAGITIS IN THE APPROPRIATE CLINICAL SETTING. 2. NO EVIDENCE FOR ACUTE APPENDICITIS, BOWEL OBSTRUCTION, COLITIS OR DIVERTICULITIS SEEN. 3. NO EVIDENCE FOR RENAL STONE DISEASE OR OBSTRUCTIVE UROPATHY. 4. ELONGATION OF THE RIGHT LOBE OF THE LIVER (UP TO 18.4 CM CC) IN KEEPING WITH HEPATOMEGALY VERSUS MARYJO'S LOBE (ANATOMICAL VARIANT). 5. NO FREE FLUID, FREE AIR, MASS LESIONS, OR LYMPHADENOPATHY SEEN.
== END 2018-05-02 03:15 | disposition home or self-care (01) ==
LOC: ED 17:06
DX: K44.9 Diaphragmatic hernia without obstruction or gangrene (principal); K21.0 Gastro-esophageal reflux disease with esophagitis; I10 Essential (primary) hypertension; G43.909 Migraine, unspecified, not intractable, without status migrainosus; Z98.51 Tubal ligation status; Z88.6 Allergy status to analgesic agent; Z88.8 Allergy status to other drugs, medicaments and biological substances
CPT/HCPCS: 36415; 74019; 74177; 80053; 81001; 84703; 85025; 96374; 96375; 99284; J2270; J2405; Q9967

== ENCOUNTER 2018-09-22 20:35 | Emergency (ER) | payer SELFPAY ==
[2018-09-22 20:41] VITALS: BP 154/87
--- NOTE | 2018-09-22 20:49 | Emergency Department Report ---
Blank Doc - Documentation Documentation: Headache times 2 day. Nausea no vomiting. Hx/o headaches. This initial assessment diagnostic orders/clinical plan/treatment (s) is/Are subject change based on patient's health status, clinical progression and re- assessment by fellow clinical providers in the ED. Further treatment and work-up at subsequent clinical providers discretion. Patient/guardians urged not to elope from their condition may be serious if not clinically assessed and managed. Initial order include:
[2018-09-22] MEDS ORDERED: BENADRYL PO ONE (21:15)
[2018-09-22] MEDS ORDERED: REGLAN PO ONE (21:15)
[2018-09-22] MEDS ORDERED: DECADRON IM ONE (21:15)
[2018-09-22] MEDS ORDERED: IBUPROFEN PO ONE (21:15)
--- NOTE | 2018-09-22 21:22 | Emergency Department Report ---
ED General Adult HPI - General Chief complaint: Headache Stated complaint: HEADACHE X 2DAYS Time Seen by Provider: 09/22/18 21:14 Source: patient Mode of arrival: Ambulatory Limitations: No Limitations - History of Present Illness Initial comments: There is a 71-year-old -[place] female with history of migraine headache who presents for headache 5/10 frontal lobe this headache is in the usual location and intensity as headaches of past headaches usually treated with tramadol po , pt has pcp who rx same, prn headache, there is no neck pain or stiffness no fever no chills pain is exacerbated by light and activity, there is no dizziness no lightheadedness no n/v Onset/Timin -: days(s) Location: face Radiation: non-radiation Severity scale (0 -10): 7 Quality: aching Consistency: constant Improves with: none Worsens with: movement Associated Symptoms: denies: cough, diaphoresis, fever/chills, nausea/vomiting, seizure, shortness of breath - Related Data Previous Rx's Medication Instructions Recorded Last Taken Type Omeprazole 20 mg PO QDAY #20 tablet.dr 05/02/18 Unknown Rx Ibuprofen [Motrin] 800 mg PO Q8HR PRN #30 tablet 06/08/18 Unknown Rx amLODIPine [Norvasc] 5 mg PO DAILY #30 tab 06/08/18 Unknown Rx traMADol [Ultram 50 MG tab] 50 mg PO Q6HR PRN #20 tablet 06/08/18 Unknown Rx Ibuprofen 800 mg PO TID PRN #30 tablet 09/22/18 Unknown Rx Metoclopramide [Reglan] 10 mg PO TID PRN #30 tab 09/22/18 Unknown Rx diphenhydrAMINE [Benadryl CAP] 25 mg PO Q8HR PRN #30 capsule 09/22/18 Unknown Rx Allergies Allergy/AdvReac Type Severity Reaction Status Date / Time acetaminophen [From Lortab] Allergy Itching Verified 04/07/17 10:40 hydrocodone bitartrate Allergy Itching Verified 04/07/17 10:40 [From Lortab] iodine Allergy Swelling Verified 04/07/17 10:40 ED Review of Systems ROS: Stated complaint: HEADACHE X 2DAYS Other details as noted in HPI Constitutional: denies: chills, fever Eyes: other (photophobia ). denies: eye pain, eye discharge, vision change ENT: denies: ear pain, throat pain, hearing loss, epistaxis, congestion Respiratory: denies: cough, shortness of breath, wheezing Cardiovascular: denies: chest pain, palpitations Endocrine: no symptoms reported Gastrointestinal: denies: abdominal pain, nausea, vomiting, diarrhea Genitourinary: denies: urgency, dysuria, frequency, hematuria, discharge Musculoskeletal: denies: back pain, joint swelling, arthralgia, myalgia Skin: denies: rash, lesions Neurological: headache. denies: weakness, numbness, paresthesias, confusion, abnormal gait, vertigo Psychiatric: denies: anxiety, depression Hematological/Lymphatic: denies: easy bleeding, easy bruising ED Past Medical Hx - Past Medical History Hx Hypertension: Yes Hx Headaches / Migraines: Yes - Surgical History Additional Surgical History: c section X 4. TUBAL LIGATION. TONSILLECTOMY - Social History Smoking Status: Never Smoker Substance Use Type: None - Medications Home Medications: Home Medications Medication Instructions Recorded Confirmed Last Taken Type Omeprazole 20 mg PO QDAY #20 tablet.dr 05/02/18 Unknown Rx Ibuprofen [Motrin] 800 mg PO Q8HR PRN #30 tablet 06/08/18 Unknown Rx amLODIPine [Norvasc] 5 mg PO DAILY #30 tab 06/08/18 Unknown Rx traMADol [Ultram 50 MG tab] 50 mg PO Q6HR PRN #20 tablet 06/08/18 Unknown Rx Ibuprofen 800 mg PO TID PRN #30 tablet 09/22/18 Unknown Rx Metoclopramide [Reglan] 10 mg PO TID PRN #30 tab 09/22/18 Unknown Rx diphenhydrAMINE [Benadryl CAP] 25 mg PO Q8HR PRN #30 capsule 09/22/18 Unknown Rx ED Physical Exam - General Limitations: No Limitations General appearance: alert, in no apparent distress - Head Head exam: Present: atraumatic, normocephalic, normal inspection - Expanded Head Exam Expanded Head exam: Absent: laceration, abrasion, contusion, hematoma, racoon eyes, bui's sign, general tenderness, tenderness of temporal artery, CSF rhinorrhea, CSF otorrhea - Eye Eye exam: Present: normal appearance, PERRL, EOMI Pupils: Present: normal accommodation - ENT ENT exam: Present: normal orophraynx, mucous membranes moist, TM's normal bilaterally, normal external ear exam - Neck Neck exam: Present: normal inspection, full ROM. Absent: tenderness, lymphadenopathy, thyromegaly - Respiratory Respiratory exam: Present: normal lung sounds bilaterally. Absent: respiratory distress, wheezes, stridor, chest wall tenderness - Cardiovascular Cardiovascular Exam: Present: regular rate, normal rhythm, normal heart sounds. Absent: systolic murmur, diastolic murmur, rubs, gallop - GI/Abdominal GI/Abdominal exam: Present: soft, normal bowel sounds. Absent: distended, tenderness, bruit, hernia - Rectal Rectal exam: Present: deferred - Extremities Exam Extremities exam: Present: normal inspection, full ROM, normal capillary refill. Absent: tenderness, joint swelling, calf tenderness - Back Exam Back exam: Present: normal inspection, full ROM. Absent: tenderness, CVA tenderness (R), CVA tenderness (L) - Neurological Exam Neurological exam: Present: alert, oriented X3, CN II-XII intact, normal gait, reflexes normal - Expanded Neurological Exam Expanded Patient oriented to: Present: person, place, time Speech: Present: fluid speech Cranial nerves: EOM's Intact: Normal, Gag Reflex: Normal, Tongue Deviation: Normal, Nystagmus: Normal, Facial Sensation: Normal, Facial Palsy with Forehead Movement: Normal, Facial Palsy without Forehead Movement: Normal Cerebellar function: Finger to Nose: Normal, Heel to Banda: Normal, Romberg: Normal Upper motor neuron: Maynor Neglect: Normal, Pronator Drift: Normal, Babinski Sign: Normal, Sensory Extinction: Normal Sensory exam: Upper Extremity Light Touch: Normal, Upper Extremity Pin Prick: Normal, Upper Extremity Temperature: Normal, UE 2 Point Discrimination: Normal, Lower Extremity Light Touch: Normal, Lower Extremity Pin Prick: Normal, Lower Extremity Temperature: Normal, LE 2 Point Discrimination: Normal Motor strength exam: RUE: 5, LUE: 5, RLE: 5, LLE: 5 DTR: bicep (R): 2+, bicep (L): 2+, ankle (R): 2+, ankle (L): 2+ Best Eye Response (Clio): (4) open spontaneously Best Motor Response (Rickey): (6) obeys commands Best Verbal Response (Rickey): (5) oriented Rickey Total: 15 - Psychiatric Psychiatric exam: Present: normal affect, normal mood - Skin Skin exam: Present: warm, dry, intact, normal color. Absent: rash, erythema, ecchymosis ED Course Vital Signs 09/22/18 20:40 Temperature 98.4 F Pulse Rate 70 Respiratory 18 Rate Blood Pressure 154/87 O2 Sat by Pulse 99 Oximetry ED Medical Decision Making - Medical Decision Making Headache improved to 2/10 plan: dc to home with rx for ibuprofen, benadryl, reglan, follow up with pcp in 2-3 days given referral to [facility] pt verbalized agreement and understanding of discharge plan. Critical care attestation.: If time is entered above; I have spent that time in minutes in the direct care of this critically ill patient, excluding procedure time. ED Disposition Clinical Impression: Headache Qualifiers: Headache type: unspecified Headache chronicity pattern: acute headache Intractability: not intractable Qualified Code(s): R51 - Headache Disposition: DC-01 TO HOME OR SELFCARE Is pt being admited?: No Does the pt Need Aspirin: No Condition: Stable Instructions: Acute Headache (ED) Prescriptions: diphenhydrAMINE [Benadryl CAP] 25 mg PO Q8HR PRN #30 capsule PRN Reason: Headache Ibuprofen 800 mg PO TID PRN #30 tablet PRN Reason: Headache Metoclopramide [Reglan] 10 mg PO TID PRN #30 tab PRN Reason: Headache Referrals: ARGELIA SMYTH MD [Primary Care Provider] - 3-5 Days Forms: Work/School Release Form(ED) Time of Disposition: 22:37 Print Language: [place]
== END 2018-09-22 22:41 | disposition home or self-care (01) ==
LOC: ED 20:35
DX: R51 Headache (principal); I10 Essential (primary) hypertension; Z98.51 Tubal ligation status; Z90.89 Acquired absence of other organs; Z88.6 Allergy status to analgesic agent; Z88.5 Allergy status to narcotic agent; Z91.041 Radiographic dye allergy status
CPT/HCPCS: 96372; 99282; J1100

== ENCOUNTER 2018-10-04 12:48 | Emergency (ER) | payer OTHER ==
[2018-10-04 12:52] VITALS: BP 152/98
[2018-10-04] MEDS ORDERED: DECADRON PO ONE (13:04)
[2018-10-04] MEDS ORDERED: BICILLIN L-A IM STA (13:04)
[2018-10-04] MEDS ORDERED: IBUPROFEN PO STA (13:05)
[2018-10-04] MEDS ORDERED: IBUPROFEN PO ONE (13:07)
--- NOTE | 2018-10-04 13:21 | Emergency Department Report ---
ED ENT HPI - General Chief complaint: Headache Stated complaint: BODY ACHE/HEADACHE Time Seen by Provider: 10/04/18 13:02 Source: patient Mode of arrival: Ambulatory Limitations: No Limitations - History of Present Illness MD complaint: sore throat -: Gradual, days(s) (1) Location: throat Severity: moderate Quality: aching Consistency: constant Improves with: none Worsens with: swallowing, eating Associated Symptoms: sore throat. denies: cough, gum swelling, toothache, pain with swallowing, tinnitus, hearing loss, discharge from ear, rhinorrhea - Related Data Previous Rx's Medication Instructions Recorded Last Taken Type Omeprazole 20 mg PO QDAY #20 tablet. 05/02/18 Unknown Rx Ibuprofen [Motrin] 800 mg PO Q8HR PRN #30 tablet 06/08/18 Unknown Rx amLODIPine [Norvasc] 5 mg PO DAILY #30 tab 06/08/18 Unknown Rx traMADol [Ultram 50 MG tab] 50 mg PO Q6HR PRN #20 tablet 06/08/18 Unknown Rx Ibuprofen 800 mg PO TID PRN #30 tablet 09/22/18 Unknown Rx Metoclopramide [Reglan] 10 mg PO TID PRN #30 tab 09/22/18 Unknown Rx diphenhydrAMINE [Benadryl CAP] 25 mg PO Q8HR PRN #30 capsule 09/22/18 Unknown Rx Chlorhexidine Mouthwash [Peridex] 15 ml MM BID #473 bottle 10/04/18 Unknown Rx Lidocaine Viscous 2% 5 ml MM Q3H PRN #120 udc 10/04/18 Unknown Rx Allergies Allergy/AdvReac Type Severity Reaction Status Date / Time acetaminophen [From Lortab] Allergy Itching Verified 04/07/17 10:40 hydrocodone bitartrate Allergy Itching Verified 04/07/17 10:40 [From Lortab] iodine Allergy Swelling Verified 04/07/17 10:40 ED Dental HPI - General Chief complaint: Headache Stated complaint: BODY ACHE/HEADACHE Time Seen by Provider: 10/04/18 13:02 Source: patient Mode of arrival: Ambulatory Limitations: No Limitations - Related Data Previous Rx's Medication Instructions Recorded Last Taken Type Omeprazole 20 mg PO QDAY #20 tablet. 05/02/18 Unknown Rx Ibuprofen [Motrin] 800 mg PO Q8HR PRN #30 tablet 06/08/18 Unknown Rx amLODIPine [Norvasc] 5 mg PO DAILY #30 tab 06/08/18 Unknown Rx traMADol [Ultram 50 MG tab] 50 mg PO Q6HR PRN #20 tablet 06/08/18 Unknown Rx Ibuprofen 800 mg PO TID PRN #30 tablet 09/22/18 Unknown Rx Metoclopramide [Reglan] 10 mg PO TID PRN #30 tab 09/22/18 Unknown Rx diphenhydrAMINE [Benadryl CAP] 25 mg PO Q8HR PRN #30 capsule 09/22/18 Unknown Rx Chlorhexidine Mouthwash [Peridex] 15 ml MM BID #473 bottle 10/04/18 Unknown Rx Lidocaine Viscous 2% 5 ml MM Q3H PRN #120 udc 10/04/18 Unknown Rx Allergies Allergy/AdvReac Type Severity Reaction Status Date / Time acetaminophen [From Lortab] Allergy Itching Verified 04/07/17 10:40 hydrocodone bitartrate Allergy Itching Verified 04/07/17 10:40 [From Lortab] iodine Allergy Swelling Verified 04/07/17 10:40 ED Review of Systems ROS: Stated complaint: BODY ACHE/HEADACHE Other details as noted in HPI Constitutional: denies: chills, fever Eyes: denies: eye pain, eye discharge, vision change ENT: denies: ear pain, throat pain Respiratory: denies: cough, shortness of breath, wheezing Cardiovascular: denies: chest pain, palpitations Endocrine: no symptoms reported Gastrointestinal: denies: abdominal pain, nausea, diarrhea Genitourinary: denies: urgency, dysuria, discharge Musculoskeletal: denies: back pain, joint swelling, arthralgia Skin: denies: rash, lesions Neurological: denies: headache, weakness, paresthesias Psychiatric: denies: anxiety, depression Hematological/Lymphatic: denies: easy bleeding, easy bruising ED Past Medical Hx - Past Medical History Hx Hypertension: Yes Hx Headaches / Migraines: Yes - Surgical History Past Surgical History?: No Additional Surgical History: c section X 4. TUBAL LIGATION. TONSILLECTOMY - Social History Smoking Status: Never Smoker Substance Use Type: None - Medications Home Medications: Home Medications Medication Instructions Recorded Confirmed Last Taken Type Omeprazole 20 mg PO QDAY #20 tablet. 05/02/18 Unknown Rx Ibuprofen [Motrin] 800 mg PO Q8HR PRN #30 tablet 06/08/18 Unknown Rx amLODIPine [Norvasc] 5 mg PO DAILY #30 tab 06/08/18 Unknown Rx traMADol [Ultram 50 MG tab] 50 mg PO Q6HR PRN #20 tablet 06/08/18 Unknown Rx Ibuprofen 800 mg PO TID PRN #30 tablet 09/22/18 Unknown Rx Metoclopramide [Reglan] 10 mg PO TID PRN #30 tab 09/22/18 Unknown Rx diphenhydrAMINE [Benadryl CAP] 25 mg PO Q8HR PRN #30 capsule 09/22/18 Unknown Rx Chlorhexidine Mouthwash [Peridex] 15 ml MM BID #473 bottle 10/04/18 Unknown Rx Lidocaine Viscous 2% 5 ml MM Q3H PRN #120 udc 10/04/18 Unknown Rx ED Physical Exam - General Limitations: No Limitations General appearance: alert, in no apparent distress - Head Head exam: Present: atraumatic, normocephalic - Eye Eye exam: Present: normal appearance, PERRL ( ), EOMI Pupils: Present: normal accommodation - ENT ENT exam: Present: normal exam, normal orophraynx, mucous membranes moist, TM's normal bilaterally, other (red and swollen pharynx with exudate. no drooling. uvula misline) - Neck Neck exam: Present: normal inspection, full ROM, lymphadenopathy. Absent: meningismus, thyromegaly - Respiratory Respiratory exam: Present: normal lung sounds bilaterally. Absent: respiratory distress - Cardiovascular Cardiovascular Exam: Present: regular rate, normal rhythm. Absent: systolic murmur, diastolic murmur, rubs, gallop - GI/Abdominal GI/Abdominal exam: Present: soft, normal bowel sounds - Extremities Exam Extremities exam: Present: normal inspection - Back Exam Back exam: Present: normal inspection - Neurological Exam Neurological exam: Present: alert, oriented X3 - Psychiatric Psychiatric exam: Present: normal affect, normal mood - Skin Skin exam: Present: warm, dry, intact, normal color. Absent: rash ED Course Vital Signs 10/04/18 12:51 Temperature 102.2 F H Pulse Rate 126 H Respiratory 16 Rate Blood Pressure 152/98 O2 Sat by Pulse 97 Oximetry Critical care attestation.: If time is entered above; I have spent that time in minutes in the direct care of this critically ill patient, excluding procedure time. ED Disposition Clinical Impression: Exudative pharyngitis Disposition: DC- TO HOME OR SELFCARE Is pt being admited?: No Does the pt Need Aspirin: No Condition: Stable Instructions: Pharyngitis (ED) Prescriptions: Lidocaine Viscous 2% 5 ml MM Q3H PRN #120 udc PRN Reason: Pain, Moderate (4-6) Chlorhexidine Mouthwash [Peridex] 15 ml MM BID #473 bottle
== END 2018-10-04 14:10 | disposition home or self-care (01) ==
LOC: ED 12:48
DX: J02.9 Acute pharyngitis, unspecified (principal); I10 Essential (primary) hypertension; G43.909 Migraine, unspecified, not intractable, without status migrainosus; Z98.51 Tubal ligation status; Z90.89 Acquired absence of other organs; Z79.899 Other long term (current) drug therapy; Z88.6 Allergy status to analgesic agent; Z88.8 Allergy status to other drugs, medicaments and biological substances
CPT/HCPCS: 96372; 99282; J0561; J1100

== ENCOUNTER 2018-12-04 21:21 | Emergency (ER) | payer OTHER ==
--- NOTE | 2018-12-04 22:50 | Emergency Department Report ---
Chief Complaint: Vaginal Bleeding Stated Complaint: VAGINAL BLEEDING/ABD CRAMPS Time Seen by Provider: 12/04/18 22:46 - HPI History of Present Illness: pt presents to the ED for vaginal bleeding x 9 days suprapubic cramping lower back pain having to change pads 6 times a day passing clots PMHx of fibroids +dysuria, +frequency +nausea no v/D no fever - Exam Vital Signs: Vital Signs 12/04/18 21:25 Temperature 98.5 F Pulse Rate 88 Respiratory 18 Rate Blood Pressure 148/96 O2 Sat by Pulse 99 Oximetry MSE screening note: Focused history and physical exam performed. Due to findings the following was ordered: UA, urine preg, labs, pelvic US ED Disposition for MSE Condition: Stable
[2018-12-04 23:36] LABS: Basophils # (Auto) 0.1 K/mm3 (0.0-0.1); Basophils % (Auto) 1.2 % (0.0-1.8); Eosinophils # (Auto) 0.1 K/mm3 (0.0-0.4); Hematocrit 34.5 % (30.3-42.9); Hemoglobin 11.3 gm/dl (10.1-14.3); Lymphocytes # (Auto) 2.4 K/mm3 (1.2-5.4); Lymphocytes % (Auto) 35.3 % (13.4-35.0); Mean Corpuscular HGB Conc 33 % (30-34); Mean Corpuscular Volume 83 fl (79-97); Monocytes # (Auto) 0.8 K/mm3 (0.0-0.8); Monocytes % (Auto) 11.7 % (0.0-7.3); Platelet Count 234 K/mm3 (140-440); Red Blood Count 4.16 M/mm3 (3.65-5.03); Red Cell Distribution Width 18.9 % (13.2-15.2)
[2018-12-04 23:41] LABS: BUN/Creatinine Ratio 12; Blood Urea Nitrogen 11 mg/dL (7-17); Calcium 8.7 mg/dL (8.4-10.2); Hemolysis Index 1
--- NOTE | 2018-12-05 01:04 | Ultrasound Report ---
PROCEDURE: US PELVIC COMPLETE TECHNIQUE: Real-time transabdominal sonography in multiple planes of the pelvis was performed. The p elvic structures were not optimally visualized. Transvaginal sonography was then performed to better evaluate the structures and/or abnormalities described below with image documentation. Grayscale, col or flow Doppler imaging, and velocity spectral waveform analysis of the ovaries was employed (duplex imaging). HISTORY: heavy vag bleeding x 9 days, hx of fibroid COMPARISONS: None . FINDINGS: UTERUS Size: 9.1 x 4.7 x 5.4 cm. Endometrial thickness: 7 mm. Orientation: anteverted. Cervix: Normal. Fibroids/masses: There are fibroids identified in the uterine myometrium. The largest measures 21 mm. . RIGHT Ovary: 2.7 x 1.6 x 1.6 cm. Appearance: Normal. Doppler images: Normal spectral waveforms and color flow images of the arterial inflow and venous out flow.. LEFT Ovary: 2.5 x 2.1 x 2.2 cm. Appearance: Small dominant cyst measures 15 mm. Doppler images: Normal spectral waveforms and color flow images of the arterial inflow and venous out flow.. Pelvic fluid: None. IMPRESSION: There are a few small fibroids identified in the uterine myometrium, the largest measure s 21 mm. There is a dominant cyst on the left ovary, this measures 15 mm. The right ovary has a normal appeara nce... This document is electronically signed by Huong Parker DO., Dec 05 2018 01:02:16 AM ET
[2018-12-05] MEDS ORDERED: ZOFRAN ODT PO ONE (01:26)
[2018-12-05] MEDS ORDERED: TORADOL IM ONE (01:26)
--- NOTE | 2018-12-05 01:31 | Emergency Department Report ---
ED Female HPI - General Chief complaint: Vaginal Bleeding Stated complaint: VAGINAL BLEEDING/ABD CRAMPS Time Seen by Provider: 12/04/18 22:46 Source: patient Mode of arrival: Ambulatory Limitations: No Limitations - History of Present Illness Initial comments: 48-year-old female with a past medical history of uterine fibroids, tubal ligation, previous , and hypertension presents to Hospital with complaints of suprapubic abdominal pain and heavy vaginal bleeding 5 days. Patient complains of 10/10 and 2 minutes. Cramping pain radiating to her back. She has using approximately 6 pads per day passed clots. She denies fever, lightheadedness, syncope, or dysuria. Known history of uterine fibroids. Due to insurance changes she she cannot follow-up with her most recent [facility] doctor and she needs to find a in network provider. - Related Data Previous Rx's Medication Instructions Recorded Last Taken Type Omeprazole 20 mg PO QDAY #20 tablet. 05/02/18 Unknown Rx amLODIPine [Norvasc] 5 mg PO DAILY #30 tab 06/08/18 Unknown Rx Ibuprofen 800 mg PO TID PRN #30 tablet 09/22/18 Unknown Rx Metoclopramide [Reglan] 10 mg PO TID PRN #30 tab 09/22/18 Unknown Rx diphenhydrAMINE [Benadryl CAP] 25 mg PO Q8HR PRN #30 capsule 09/22/18 Unknown Rx Chlorhexidine Mouthwash [Peridex] 15 ml MM BID #473 bottle 10/04/18 Unknown Rx Lidocaine Viscous 2% 5 ml MM Q3H PRN #120 udc 10/04/18 Unknown Rx Docusate Sodium [Colace] 100 mg PO BID PRN #20 capsule 12/05/18 Unknown Rx Ferrous Sulfate [Feosol 325 MG tab] 325 mg PO QDAY #20 tablet 12/05/18 Unknown Rx Ibuprofen [Motrin 800 MG tab] 800 mg PO Q8HR PRN #30 tablet 12/05/18 Unknown Rx medroxyPROGESTERone ACETATE 10 mg PO DAILY #7 tablet 12/05/18 Unknown Rx [Provera] traMADol [Ultram 50 MG tab] 50 mg PO Q6HR PRN #20 tablet 12/05/18 Unknown Rx Allergies Allergy/AdvReac Type Severity Reaction Status Date / Time hydrocodone bitartrate Allergy Itching Verified 04/07/17 10:40 [From Lortab] iodine Allergy Swelling Verified 04/07/17 10:40 ED Review of Systems ROS: Stated complaint: VAGINAL BLEEDING/ABD CRAMPS Other details as noted in HPI Comment: All other systems reviewed and negative ED Past Medical Hx - Past Medical History Previous Medical History?: Yes Hx Hypertension: Yes (denies) Hx Headaches / Migraines: Yes Additional medical history: fibroids - Surgical History Past Surgical History?: Yes Additional Surgical History: c section X 4. TUBAL LIGATION. TONSILLECTOMY - Social History Smoking Status: Never Smoker Substance Use Type: None - Medications Home Medications: Home Medications Medication Instructions Recorded Confirmed Last Taken Type Omeprazole 20 mg PO QDAY #20 tablet. 05/02/18 Unknown Rx amLODIPine [Norvasc] 5 mg PO DAILY #30 tab 06/08/18 Unknown Rx Ibuprofen 800 mg PO TID PRN #30 tablet 09/22/18 Unknown Rx Metoclopramide [Reglan] 10 mg PO TID PRN #30 tab 09/22/18 Unknown Rx diphenhydrAMINE [Benadryl CAP] 25 mg PO Q8HR PRN #30 capsule 09/22/18 Unknown Rx Chlorhexidine Mouthwash [Peridex] 15 ml MM BID #473 bottle 10/04/18 Unknown Rx Lidocaine Viscous 2% 5 ml MM Q3H PRN #120 udc 10/04/18 Unknown Rx Docusate Sodium [Colace] 100 mg PO BID PRN #20 capsule 12/05/18 Unknown Rx Ferrous Sulfate [Feosol 325 MG tab] 325 mg PO QDAY #20 tablet 12/05/18 Unknown Rx Ibuprofen [Motrin 800 MG tab] 800 mg PO Q8HR PRN #30 tablet 12/05/18 Unknown Rx medroxyPROGESTERone ACETATE 10 mg PO DAILY #7 tablet 12/05/18 Unknown Rx [Provera] traMADol [Ultram 50 MG tab] 50 mg PO Q6HR PRN #20 tablet 12/05/18 Unknown Rx ED Physical Exam - General Limitations: No Limitations - Other Other exam information: General: Mild distress secondary to pain Head exam: Atraumatic, normocephalic Eyes exam: Normal appearance ENT: Moist mucous membrane Neck exam: Normal inspection, full range of motion, no meningismus nontender Respiratory exam: Clear to auscultation bilateral, no wheezes, rales, crackles Cardiovascular: Normal rate and rhythm, normal heart sounds Abdomen: Soft, nondistended, suprapubic tenderness, with normal bowel sounds, no rebound, or guarding Extremity: Full range of motion normal inspection no deformity Back: Normal Inspection, full range of motion, no tenderness Neurologic: Alert, oriented x3, cranial nerves intact, no motor or sensory deficit Psychiatric: normal affect, normal mood Skin: Warm, dry, intact ED Course Vital Signs 12/04/18 21:25 Temperature 98.5 F Pulse Rate 88 Respiratory 18 Rate Blood Pressure 148/96 O2 Sat by Pulse 99 Oximetry ED Medical Decision Making - Lab Data Result diagrams: 12/04/18 22:56 12/04/18 22:56 Lab Results 12/04/18 12/04/18 12/04/18 Range/Units 22:56 22:56 22:56 WBC 6.9 (4.5-11.0) K/mm3 RBC 4.16 (3.65-5.03) M/mm3 Hgb 11.3 (10.1-14.3) gm/dl Hct 34.5 (30.3-42.9) % MCV 83 (79-97) fl MCH 27 L (28-32) pg MCHC 33 (30-34) % RDW 18.9 H (13.2-15.2) % Plt Count 234 (140-440) K/mm3 Lymph % (Auto) 35.3 H (13.4-35.0) % [place] % (Auto) 11.7 H (0.0-7.3) % Eos % (Auto) 2.0 (0.0-4.3) % Baso % (Auto) 1.2 (0.0-1.8) % Lymph # 2.4 (1.2-5.4) K/mm3 [place] # 0.8 (0.0-0.8) K/mm3 Eos # 0.1 (0.0-0.4) K/mm3 Baso # 0.1 (0.0-0.1) K/mm3 Seg Neutrophils % 49.8 (40.0-70.0) % Seg Neutrophils # 3.5 (1.8-7.7) K/mm3 Sodium 140 (137-145) mmol/L Potassium 3.9 (3.6-5.0) mmol/L Chloride 102.7 (98-107) mmol/L Carbon Dioxide 27 (22-30) mmol/L Anion Gap 14 mmol/L BUN 11 (7-17) mg/dL Creatinine 0.9 (0.7-1.2) mg/dL Estimated GFR > 60 ml/min BUN/Creatinine Ratio 12 % Glucose 91 (65-100) mg/dL Calcium 8.7 (8.4-10.2) mg/dL HCG, Quant < 2 (0-4) mIU/mL - Radiology Data Radiology results: report reviewed PROCEDURE: US TRANSVAGINAL TECHNIQUE: Real-time transabdominal sonography in multiple planes of the pelvis was performed. The pelvic structures were not optimally visualized. Transvaginal sonography was then performed to better evaluate the structures and/or abnormalities described below with image documentation. Grayscale, color flow Doppler imaging, and velocity spectral waveform analysis of the ovaries was employed (duplex imaging). HISTORY: heavy vag bleeding x 9 days, hx of fibroid COMPARISONS: None . FINDINGS: UTERUS Size: 9.1 x 4.7 x 5.4 cm. Endometrial thickness: 7 mm. Orientation: anteverted. Cervix: Normal. Fibroids/masses: There are fibroids identified in the uterine myometrium. The largest measures 21 mm.. RIGHT Ovary: 2.7 x 1.6 x 1.6 cm. Appearance: Normal. Doppler images: Normal spectral waveforms and color flow images of the arterial inflow and venous outflow.. LEFT Ovary: 2.5 x 2.1 x 2.2 cm. Appearance: Small dominant cyst measures 15 mm. Doppler images: Normal sp ectral waveforms and color flow images of the arterial inflow and venous outflow.. Pelvic fluid: None. IMPRESSION: There are a few small fibroids identified in the uterine myometrium, the largest measures 21 mm. There is a dominant cyst on the left ovary, this measures 15 mm. The right ovary has a normal appearance... PROCEDURE: US PELVIC COMPLETE TECHNIQUE: Real-time transabdominal sonography in multiple planes of the pelvis was performed. The pelvic structures were not optimally visualized. Transvaginal sonography was then performed to better evaluate the structures and/or abnormalities described below with image documentation. Grayscale, color flow Doppler imaging, and velocity spectral wave form analysis of the ovaries was employed (duplex imaging). HISTORY: heavy vag bleeding x 9 days, hx of fibroid COMPARISONS: None . FINDINGS: UTERUS Size: 9.1 x 4.7 x 5.4 cm. Endometrial thickness: 7 mm. Orientation: anteverted. Cervix: Normal. Fibroids/masses: There are fibroids identified in the uterine myometrium. The largest measures 21 mm.. RIGHT Ovary: 2.7 x 1.6 x 1.6 cm. Appearance: Normal. Doppler images: Normal spectral waveforms and color flow images of the arterial inflow and venous outflow.. LEFT Ovary: 2.5 x 2.1 x 2.2 cm. Appearance: Small dominant cyst measures 15 mm. Doppler images: Normal spectral waveforms and color flow images of the arterial inflow and venous outflow.. Pelvic fluid: None. IMPRESSION: There are a few small fibroids identified in the uterine myometrium, the largest measures 21 mm. There is a dominant cyst on the left ovary, this measures 15 mm. The right ovary has a normal appearance... - Medical Decision Making Dysmenorrhea and menorrhagia secondary to uterine fibroids H&H normal, no signs of Patient will be treated with NSAIDs, tramadol (patient can tolerate), Colace when necessary constipation, Provera, and iron tablets, Encourage follow-up with [facility] Toradol provided in the ED prior to discharge. Pt is driving home - Differential Diagnosis fibroids, ectopic, miscarriage, anemia, cancer Critical Care Time: No Critical care attestation.: If time is entered above; I have spent that time in minutes in the direct care of this critically ill patient, excluding procedure time. ED Disposition Clinical Impression: Menorrhagia, Uterine fibroid, Dysmenorrhea Disposition: TO HOME OR SELFCARE Is pt being admited?: No Does the pt Need Aspirin: No Condition: Stable Instructions: Uterine Fibroids (ED), Menorrhagia (ED), Dysmenorrhea (ED) Additional Instructions: Take the medication as prescribed. Follow up with your doctor or the clinic/doctor provided. Return if symptoms worsen as indicated by your discharge instructions Prescriptions: Docusate Sodium [Colace] 100 mg PO BID PRN #20 capsule PRN Reason: Constipation Ferrous Sulfate [Feosol 325 MG tab] 325 mg PO QDAY #20 tablet Ibuprofen [Motrin 800 MG tab] 800 mg PO Q8HR PRN #30 tablet PRN Reason: Pain, Moderate (4-6) medroxyPROGESTERone ACETATE [Provera] 10 mg PO DAILY #7 tablet traMADol [Ultram 50 MG tab] 50 mg PO Q6HR PRN #20 tablet PRN Reason: Pain Referrals: ROLAND ABRAHAM MD [Primary Care Provider] - 3-5 Days STACY VIEYRA MD [Staff Physician] - 3-5 Days Time of Disposition: 01:34
[2018-12-05 01:58] VITALS: BP 171/95
== END 2018-12-05 01:57 | disposition home or self-care (01) ==
LOC: ED 21:21
DX: N94.6 Dysmenorrhea, unspecified (principal); D25.9 Leiomyoma of uterus, unspecified; I10 Essential (primary) hypertension; G43.909 Migraine, unspecified, not intractable, without status migrainosus; Z98.51 Tubal ligation status; Z90.49 Acquired absence of other specified parts of digestive tract; Z79.899 Other long term (current) drug therapy; Z88.6 Allergy status to analgesic agent; Z88.8 Allergy status to other drugs, medicaments and biological substances
CPT/HCPCS: 36415; 76830; 76856; 80048; 84702; 85025; 96372; 99284; J1885; Q0162

== ENCOUNTER 2019-01-21 19:37 | Emergency (ER) | payer BC, OTHER ==
[2019-01-21 19:57] VITALS: BP 146/96
--- NOTE | 2019-01-21 20:26 | Event Note ---
ED Screening Note Date of service: 01/21/19 Time: 20:02 ED Screening Note: 48 y/o female punched a wall now has right hand pain. This initial assessment/diagnostic orders/clinical plan/treatment(s) is/are subject to change based on patients health status, clinical progression and re-assessment by fellow clinical providers in the ED. Further treatment and workup at subsequent clinical providers discretion. Patient/guardian urged not to elope from the ED as their condition may be serious if not clinically assessed and managed. Initial orders include:
--- NOTE | 2019-01-21 21:28 | XRay Report ---
PROCEDURE: XR HAND 3+V RT TECHNIQUE: 3 views of the right hand HISTORY: punched a wall hand pain COMPARISONS: FINDINGS: No acute fracture identified. No dislocation seen. Joint spaces are within normal limits. The carpal bones maintain normal alignment. Distal radius and ulna are intact. IMPRESSION: No acute abnormality identified. This document is electronically signed by Maicol Ruvalcaba MD., January 21 2019 09:26:17 PM ET
--- NOTE | 2019-01-21 22:43 | Emergency Department Report ---
Upper Extremity - HPI Chief Complaint: Extremity Injury, Upper Stated Complaint: RT HAND/RT ANKLE PAIN Time Seen by Provider: 01/21/19 20:01 Other History: Patient is a 48-year-old female who presents emergency Department with complaints of right hand pain began 5 hours prior to arrival. The patient states she punched a wall inside of the house. She did not punch through the wall. She states has some mild tingling in the right hand. she denies any numbness or weakness. She denies ever injurying this hand in the past. Patient denies any past medical history. Denies any allergies to medications. Denies any daily medications. ED Review of Systems ROS: Stated complaint: RT HAND/RT ANKLE PAIN Other details as noted in HPI Comment: All other systems reviewed and negative ED Past Medical Hx - Past Medical History Previous Medical History?: Yes Hx Hypertension: Yes (denies) Hx Headaches / Migraines: Yes Additional medical history: fibroids, Chronic pain right ankle. - Surgical History Past Surgical History?: Yes Additional Surgical History: c section X 4. TUBAL LIGATION. TONSILLECTOMY - Social History Smoking Status: Never Smoker Substance Use Type: None - Medications Home Medications: Home Medications Medication Instructions Recorded Confirmed Last Taken Type Omeprazole 20 mg PO QDAY #20 tablet. 05/02/18 Unknown Rx amLODIPine [Norvasc] 5 mg PO DAILY #30 tab 06/08/18 Unknown Rx Ibuprofen [Ibuprofen 800] 800 mg PO TID PRN #30 tablet 09/22/18 Unknown Rx Metoclopramide [Reglan] 10 mg PO TID PRN #30 tab 09/22/18 Unknown Rx diphenhydrAMINE [Benadryl CAP] 25 mg PO Q8HR PRN #30 capsule 09/22/18 Unknown Rx Chlorhexidine Mouthwash [Peridex] 15 ml MM BID #473 bottle 10/04/18 Unknown Rx Lidocaine Viscous 2% 5 ml MM Q3H PRN #120 udc 10/04/18 Unknown Rx Docusate Sodium [Colace] 100 mg PO BID PRN #20 capsule 12/05/18 Unknown Rx Ferrous Sulfate [Feosol 325 MG tab] 325 mg PO QDAY #20 tablet 12/05/18 Unknown Rx Ibuprofen [Motrin 800 MG tab] 800 mg PO Q8HR PRN #30 tablet 12/05/18 Unknown Rx medroxyPROGESTERone ACETATE 10 mg PO DAILY #7 tablet 12/05/18 Unknown Rx [Provera] traMADol [Ultram 50 MG tab] 50 mg PO Q6HR PRN #20 tablet 12/05/18 Unknown Rx Ibuprofen [Motrin 800 MG tab] 800 mg PO Q8HR PRN #20 tablet 01/21/19 Unknown Rx Upper Extremity Exam - Exam General: Vital signs noted. No distress. Alert and acting appropriately. Arm Exam: No Arm/Humerus Tenderness, No Arm Deformity Elbow: Yes Normal Range of Motion in Elbow, No Elbow Tenderness, No Elbow Deformity Forearm: No Forearm Tenderness, No Forearm Deformity, No Pain with Pronation, No Pain with Supination Wrist: Yes Normal ROM in Wrist, No Wrist Tenderness, No Wrist Deformity, No Snuffbox Tenderness, No Pain with Axial Thumb Compression Hand: Yes Digit Tenderness (tenderness to palpation over the MCP and PIP of the 3rd, 4th, and 5th digits of the right hand), Yes Normal ROM in Digit(s), No Hand Tenderness, No Hand Deformity, No Digit(s) Deformity, No Tendon Dysfunction CMS Exam: Yes Normal Distal Pulses, Yes Normal Capillary Refill, Yes Normal Distal Sensation, No Broken Skin ED Course Vital Signs 01/21/19 01/21/19 19:43 19:54 Temperature 98.6 F 98.3 F Pulse Rate 85 96 H Respiratory 18 18 Rate Blood Pressure 146/92 146/96 O2 Sat by Pulse 99 100 Oximetry ED Medical Decision Making - Radiology Data Radiology results: report reviewed PROCEDURE: XR HAND 3+V RT TECHNIQUE: 3 views of the right hand HISTORY: punched a wall hand pain COMPARISONS: FINDINGS: No acute fracture identified. No dislocation seen. Joint spaces are within normal limits. The carpal bones maintain normal alignment. Distal radius and ulna are intact. IMPRESSION: No acute abnormality identified. This document is electronically signed by Maicol Bran MD., January 21 2019 09:26:17 PM ET Transcribed By: ANA Dictated By: SALUD BRAN MD Electronically Authenticated By: SALUD BRAN MD Signed Date/Time: 01/21/192127 - Medical Decision Making Patient is a 48-year-old female who presents emergency Department with complai nts of right hand pain began 5 hours prior to arrival. The patient states she punched a wall inside of the house. She did not punch through the wall. She states has some mild tingling in the right hand. she denies any numbness or weakness. She denies ever injurying this hand in the past. Patient denies any past medical history. Denies any allergies to medications. Denies any daily medications. on exam: tenderness to palpation over the MCP and PIP of the 3rd, 4th, and 5th digits of the right hand, no abrasions/no lacerations, no deformity, no ecchymosis, no edema, neurovascularly intact. XR right hand with no acute process. pt given anti-inflammatory for hand discomfort. advised to please take medication as prescribed as needed. May use ice for 15 minutes at a time. Follow up with primary care doctor in the next 2-3 days. Return to the emergency room for any new or worsening symptoms. - Differential Diagnosis fx, dislocation, strain, sprain Critical care attestation.: If time is entered above; I have spent that time in minutes in the direct care of this critically ill patient, excluding procedure time. ED Disposition Clinical Impression: Right hand pain Disposition: TO HOME OR SELFCARE Is pt being admited?: No Does the pt Need Aspirin: No Condition: Stable Instructions: Arthralgia (ED) Additional Instructions: Please take medication as prescribed as needed. May use ice for 15 minutes at a time. Follow up with primary care doctor in the next 2-3 days. Return to the emergency room for any new or worsening symptoms. Prescriptions: Ibuprofen [Motrin 800 MG tab] 800 mg PO Q8HR PRN #20 tablet PRN Reason: Pain, Moderate (4-6) Referrals: PRIMARY CARE, [Primary Care Provider] - 2-3 Days Time of Disposition: 22:45 Print Language: DUTCH
== END 2019-01-21 23:01 | disposition home or self-care (01) ==
LOC: ED 19:37
DX: M79.641 Pain in right hand (principal); I10 Essential (primary) hypertension; G43.909 Migraine, unspecified, not intractable, without status migrainosus; Z98.51 Tubal ligation status; Z90.89 Acquired absence of other organs; Z79.899 Other long term (current) drug therapy; Z88.6 Allergy status to analgesic agent
CPT/HCPCS: 99283

== ENCOUNTER 2019-03-24 20:11 | Emergency (ER) | payer BC, OTHER ==
[2019-03-24] MEDS ORDERED: BENADRYL IV STA (22:18)
[2019-03-24] MEDS ORDERED: ZOFRAN IV STA (22:18)
[2019-03-24] MEDS ORDERED: TORADOL IV STA (22:18)
[2019-03-24] MEDS ORDERED: NACL 0.9% 1000 ML 1,000 ML IV ONE (22:18)
[2019-03-24] MEDS ORDERED: REGLAN IV STA (22:18)
--- NOTE | 2019-03-24 23:35 | Emergency Department Report ---
ED Headache HPI - General Chief Complaint: Headache Stated Complaint: HEADACHES Time Seen by Provider: 03/24/19 21:21 - History of Present Illness Timing/Duration: waxing and waning Quality: moderate Head Injury Location: parietal Recent Head Trauma: no recent headache/trauma, chronic headaches (history of migraine headaches associated with photophobia and phonophobia. No scotomas. No nausea, no vomiting, no visual changes. No tinnitus. No neck pain. Takes [id number] medications at home to help to resolve the symptoms, but has been unsuccessful with this event of headaches. She reports no fever, rashes, shortness of breath, chest pain. She has not yet been evaluated by neurologist for her progressive fluctuant of migraine headaches.) Associated Symptoms: denies: facial pain, fever/chills, nausea/vomiting, nasal congestion, nasal drainage, numbness in legs/feet, sinus infection, stiff neck, vision changes Allergies/Adverse Reactions: Allergies hydrocodone bitartrate [From Lortab] Allergy (Verified 04/07/17 10:40) Itching iodine Allergy (Verified 04/07/17 10:40) Swelling Home Medications: Ambulatory Orders Omeprazole 20 mg PO QDAY #20 tablet. 05/02/18 amLODIPine [Norvasc] 5 mg PO DAILY #30 tab 06/08/18 Ibuprofen [Ibuprofen 800] 800 mg PO TID PRN #30 tablet 09/22/18 Metoclopramide [Reglan] 10 mg PO TID PRN #30 tab 09/22/18 diphenhydrAMINE [Benadryl CAP] 25 mg PO Q8HR PRN #30 capsule 09/22/18 Chlorhexidine Mouthwash [Peridex] 15 ml MM BID #473 bottle 10/04/18 Lidocaine Viscous 2% 5 ml MM Q3H PRN #120 udc 10/04/18 Docusate Sodium [Colace] 100 mg PO BID PRN #20 capsule 12/05/18 Ferrous Sulfate [Feosol 325 MG tab] 325 mg PO QDAY #20 tablet 12/05/18 Ibuprofen [Motrin 800 MG tab] 800 mg PO Q8HR PRN #30 tablet 12/05/18 medroxyPROGESTERone ACETATE [Provera] 10 mg PO DAILY #7 tablet 12/05/18 traMADol [Ultram 50 MG tab] 50 mg PO Q6HR PRN #20 tablet 12/05/18 Ibuprofen [Motrin 800 MG tab] 800 mg PO Q8HR PRN #20 tablet 01/21/19 Butalb/Acetaminophen/Caffeine [Fioricet 50-300-40 mg CAP] 1 cap PO Q6HR PRN #20 cap 03/24/19 ED Review of Systems ROS: Stated complaint: HEADACHES Other details as noted in HPI Comment: All other systems reviewed and negative ED Past Medical Hx - Past Medical History Previous Medical History?: Yes Hx Hypertension: Yes (denies) Hx Headaches / Migraines: Yes Additional medical history: fibroids, Chronic pain right ankle. - Surgical History Past Surgical History?: Yes Additional Surgical History: c section X 4. TUBAL LIGATION. TONSILLECTOMY - Social History Smoking Status: Never Smoker Substance Use Type: None - Medications Home Medications: Home Medications Medication Instructions Recorded Confirmed Last Taken Type Omeprazole 20 mg PO QDAY #20 tablet. 05/02/18 Unknown Rx amLODIPine [Norvasc] 5 mg PO DAILY #30 tab 06/08/18 Unknown Rx Ibuprofen [Ibuprofen 800] 800 mg PO TID PRN #30 tablet 09/22/18 Unknown Rx Metoclopramide [Reglan] 10 mg PO TID PRN #30 tab 09/22/18 Unknown Rx diphenhydrAMINE [Benadryl CAP] 25 mg PO Q8HR PRN #30 capsule 09/22/18 Unknown Rx Chlorhexidine Mouthwash [Peridex] 15 ml MM BID #473 bottle 10/04/18 Unknown Rx Lidocaine Viscous 2% 5 ml MM Q3H PRN #120 udc 10/04/18 Unknown Rx Docusate Sodium [Colace] 100 mg PO BID PRN #20 capsule 12/05/18 Unknown Rx Ferrous Sulfate [Feosol 325 MG tab] 325 mg PO QDAY #20 tablet 12/05/18 Unknown Rx Ibuprofen [Motrin 800 MG tab] 800 mg PO Q8HR PRN #30 tablet 12/05/18 Unknown Rx medroxyPROGESTERone ACETATE 10 mg PO DAILY #7 tablet 12/05/18 Unknown Rx [Provera] traMADol [Ultram 50 MG tab] 50 mg PO Q6HR PRN #20 tablet 12/05/18 Unknown Rx Ibuprofen [Motrin 800 MG tab] 800 mg PO Q8HR PRN #20 tablet 01/21/19 Unknown Rx Butalb/Acetaminophen/Caffeine 1 cap PO Q6HR PRN #20 cap 03/24/19 Unknown Rx [Fioricet 50-300-40 mg CAP] ED Physical Exam - General Limitations: No Limitations General appearance: alert, in no apparent distress - Head Head exam: Present: atraumatic, normocephalic - Eye Eye exam: Present: normal appearance, PERRL, EOMI Pupils: Present: normal accommodation - ENT ENT exam: Present: normal exam, normal orophraynx, mucous membranes dry, mucous membranes moist - Neck Neck exam: Present: normal inspection, full ROM - Respiratory Respiratory exam: Present: normal lung sounds bilaterally. Absent: respiratory distress, wheezes, rales, rhonchi, accessory muscle use, decreased breath sounds - Cardiovascular Cardiovascular Exam: Present: regular rate, normal rhythm. Absent: systolic murmur, diastolic murmur, rubs, gallop - GI/Abdominal GI/Abdominal exam: Present: soft, normal bowel sounds. Absent: distended, tenderness, guarding, hyperactive bowel sounds, hypoactive bowel sounds, organomegaly, mass, pulsatile mass - Extremities Exam Extremities exam: Present: normal inspection, tenderness, normal capillary refill - Back Exam Back exam: Present: normal inspection. Absent: CVA tenderness (R), CVA tenderness (L) - Neurological Exam Neurological exam: Present: alert, oriented X3, CN II-XII intact, normal gait - Psychiatric Psychiatric exam: Present: normal affect, normal mood. Absent: flat affect, manic, suicidal ideation - Skin Skin exam: Present: warm, dry, intact, normal color. Absent: rash, cyanosis, diaphoretic, erythema, petechiae, pallor, abrasion ED Course Vital Signs 03/24/19 20:29 Temperature 97.6 F Pulse Rate 75 Respiratory 18 Rate Blood Pressure 159/98 O2 Sat by Pulse 99 Oximetry ED Medical Decision Making - Medical Decision Making She has not yet spelled with a neurologist. Plans for follow-up with neurology for further evaluation of these headaches. Had ache is responsive to the migraine cocktail. She is alert and oriented 3, no acute distress and ambulatory. Critical care attestation.: If time is entered above; I have spent that time in minutes in the direct care of this critically ill patient, excluding procedure time. ED Disposition Clinical Impression: Cephalgia Disposition: DC-01 TO HOME OR SELFCARE Is pt being admited?: No Does the pt Need Aspirin: No Condition: Stable Instructions: Cluster Headache (ED), Acute Headache (ED) Additional Instructions: Please follow with neurology for further evaluation of the headaches Betzy list of possible neurologist who may be able to help assist your recurrent headache issues Prescriptions: Butalb/Acetaminophen/Caffeine [Fioricet 50-300-40 mg CAP] 1 cap PO Q6HR PRN #20 cap PRN Reason: headaches Referrals: PRIMARY CARE, [Primary Care Provider] - 3-5 Days SAHIL BUITRAGO MD [Staff Physician] - 3-5 Days IRIS SHAFFER MD [Staff Physician] - 3-5 Days KANDY MARIE MD [Referring] - 3-5 Days MARCELL URENA MD [Staff Physician] - 3-5 Days AMADO WEST MD [Staff Physician] - 3-5 Days AMBROSIO DAVIS [PHYSICIAN CODING AUDITOR STUDENT] - 3-5 Days
[2019-03-25] VITALS: BP 124/78
== END 2019-03-25 00:01 | disposition home or self-care (01) ==
LOC: ED 20:11
DX: G43.909 Migraine, unspecified, not intractable, without status migrainosus (principal); I10 Essential (primary) hypertension; G89.29 Other chronic pain; Z98.51 Tubal ligation status; Z79.899 Other long term (current) drug therapy; Z88.6 Allergy status to analgesic agent; Z88.8 Allergy status to other drugs, medicaments and biological substances
CPT/HCPCS: 96374; 96375; 99282; J1200; J1885; J2405; J2765; J7030; 96361

== ENCOUNTER 2019-03-27 21:13 | Emergency (ER) | payer BC ==
[2019-03-27 21:31] VITALS: BP 159/96
[2019-03-27 22:38] LABS: HCG Qualitative,Urine Negative (Negative)
[2019-03-27 22:39] LABS: Amorphous Crystals,Urine 2+; Bilirubin,Urine NEG (Negative); Blood,Urine NEG (Negative); Color,Urine Yellow (Yellow); Protein,Urine <15 mg/dL mg/dL (Negative); Urobilinogen,Urine < 2.0 mg/dL (<2.0)
[2019-03-27 22:45] LABS: Mucus,Urine FEW /HPF
[2019-03-27] MEDS ORDERED: ZITHROMAX PO ONE (23:20)
[2019-03-27] MEDS ORDERED: XYLOCAINE 1% MPF 5 mL INFILTRATI ONE (23:20)
[2019-03-27] MEDS ORDERED: ROCEPHIN IM ONE (23:20)
[2019-03-27] MEDS ORDERED: TYLENOL PO ONE (23:20)
[2019-03-27] MEDS ORDERED: ZOFRAN ODT PO ONE (23:20)
[2019-03-28] MEDS ORDERED: FLAGYL PO ONE (00:26)
--- NOTE | 2019-03-28 00:31 | Emergency Department Report ---
ED Female HPI - General Chief complaint: Urogenital-Female Stated complaint: VAGINAL DISCHARGE Time Seen by Provider: 03/27/19 23:10 Source: patient Mode of arrival: Ambulatory Limitations: No Limitations - History of Present Illness Initial comments: Patient is a 48-year-old -[place] female with a history of chronic migraine headaches who presents with a ED with complaint of acute onset persistent vaginal discharge, vaginal itching, dysuria, urinary frequency and urgency for the last 1 week, worse in the last 2 days. Patient admits to being sexually active with a long distant but and without any protection. Patient denies fever, chills, nausea, vomiting, vaginal bleeding, cough, chest pain, sore throat, abdominal pain, shortness of breath, dyspareunia, low back pain or diarrhea. MD Complaint: vaginal discharge, dysuria, possible STD -: Sudden, week(s) (1) Location: other (vagina) Radiation: non-radiating Severity: moderate Severity scale (0 -10): 5 Quality: burning, other (itching) Consistency: constant Improves with: none Worsens with: none Are you Now?: No Associated Symptoms: denies other symptoms, vaginal discharge, dysuria. denies: vaginal bleeding, abdominal pain, nausea/vomiting, fever/chills, headaches, loss of appetite, hematuria, rash, seizure, shortness of breath - Related Data Sexually active: Yes Previous Rx's Medication Instructions Recorded Last Taken Type Omeprazole 20 mg PO QDAY #20 tablet. 05/02/18 Unknown Rx amLODIPine [Norvasc] 5 mg PO DAILY #30 tab 06/08/18 Unknown Rx Ibuprofen [Ibuprofen 800] 800 mg PO TID PRN #30 tablet 09/22/18 Unknown Rx Metoclopramide [Reglan] 10 mg PO TID PRN #30 tab 09/22/18 Unknown Rx diphenhydrAMINE [Benadryl CAP] 25 mg PO Q8HR PRN #30 capsule 09/22/18 Unknown Rx Chlorhexidine Mouthwash [Peridex] 15 ml MM BID #473 bottle 10/04/18 Unknown Rx Lidocaine Viscous 2% 5 ml MM Q3H PRN #120 udc 10/04/18 Unknown Rx Docusate Sodium [Colace] 100 mg PO BID PRN #20 capsule 12/05/18 Unknown Rx Ferrous Sulfate [Feosol 325 MG tab] 325 mg PO QDAY #20 tablet 12/05/18 Unknown Rx Ibuprofen [Motrin 800 MG tab] 800 mg PO Q8HR PRN #30 tablet 12/05/18 Unknown Rx medroxyPROGESTERone ACETATE 10 mg PO DAILY #7 tablet 12/05/18 Unknown Rx [Provera] traMADol [Ultram 50 MG tab] 50 mg PO Q6HR PRN #20 tablet 12/05/18 Unknown Rx Ibuprofen [Motrin 800 MG tab] 800 mg PO Q8HR PRN #20 tablet 01/21/19 Unknown Rx Butalb/Acetaminophen/Caffeine 1 cap PO Q6HR PRN #20 cap 03/24/19 Unknown Rx [Fioricet 50-300-40 mg CAP] Fluconazole [Diflucan TAB] 150 mg PO ONCE #2 tablet 03/28/19 Unknown Rx Ibuprofen [Motrin] 800 mg PO Q8HR PRN #20 tablet 03/28/19 Unknown Rx Ondansetron [Zofran Odt] 4 mg PO Q8HR PRN #15 tab.rapdis 03/28/19 Unknown Rx Sulfamethoxazole/Trimethoprim 1 each PO Q12H #20 tablet 03/28/19 Unknown Rx [Bactrim DS TAB] metroNIDAZOLE [Flagyl] 500 mg PO Q12HR #14 tab 03/28/19 Unknown Rx Allergies Allergy/AdvReac Type Severity Reaction Status Date / Time hydrocodone bitartrate Allergy Itching Verified 04/07/17 10:40 [From Lortab] iodine Allergy Swelling Verified 04/07/17 10:40 ED Review of Systems ROS: Stated complaint: VAGINAL DISCHARGE Other details as noted in HPI Constitutional: denies: chills, fever Eyes: denies: eye pain, eye discharge, vision change ENT: denies: ear pain, throat pain Respiratory: denies: cough, shortness of breath, wheezing Cardiovascular: denies: chest pain, palpitations Endocrine: no symptoms reported Gastrointestinal: denies: abdominal pain, nausea, diarrhea Genitourinary: dysuria, frequency, discharge. denies: urgency Musculoskeletal: denies: back pain, joint swelling, arthralgia Skin: denies: rash, lesions Neurological: denies: headache, weakness, paresthesias Psychiatric: denies: anxiety, depression Hematological/Lymphatic: denies: easy bleeding, easy bruising ED Past Medical Hx - Past Medical History Previous Medical History?: Yes Hx Hypertension: Yes (denies) Hx Headaches / Migraines: Yes Additional medical history: fibroids, Chronic pain right ankle. - Surgical History Past Surgical History?: Yes Additional Surgical History: c section X 4. TUBAL LIGATION. TONSILLECTOMY - Social History Smoking Status: Never Smoker Substance Use Type: None - Medications Home Medications: Home Medications Medication Instructions Recorded Confirmed Last Taken Type Omeprazole 20 mg PO QDAY #20 tablet.dr 05/02/18 Unknown Rx amLODIPine [Norvasc] 5 mg PO DAILY #30 tab 06/08/18 Unknown Rx Ibuprofen [Ibuprofen 800] 800 mg PO TID PRN #30 tablet 09/22/18 Unknown Rx Metoclopramide [Reglan] 10 mg PO TID PRN #30 tab 09/22/18 Unknown Rx diphenhydrAMINE [Benadryl CAP] 25 mg PO Q8HR PRN #30 capsule 09/22/18 Unknown Rx Chlorhexidine Mouthwash [Peridex] 15 ml MM BID #473 bottle 10/04/18 Unknown Rx Lidocaine Viscous 2% 5 ml MM Q3H PRN #120 udc 10/04/18 Unknown Rx Docusate Sodium [Colace] 100 mg PO BID PRN #20 capsule 12/05/18 Unknown Rx Ferrous Sulfate [Feosol 325 MG tab] 325 mg PO QDAY #20 tablet 12/05/18 Unknown Rx Ibuprofen [Motrin 800 MG tab] 800 mg PO Q8HR PRN #30 tablet 12/05/18 Unknown Rx medroxyPROGESTERone ACETATE 10 mg PO DAILY #7 tablet 12/05/18 Unknown Rx [Provera] traMADol [Ultram 50 MG tab] 50 mg PO Q6HR PRN #20 tablet 12/05/18 Unknown Rx Ibuprofen [Motrin 800 MG tab] 800 mg PO Q8HR PRN #20 tablet 01/21/19 Unknown Rx Butalb/Acetaminophen/Caffeine 1 cap PO Q6HR PRN #20 cap 03/24/19 Unknown Rx [Fioricet 50-300-40 mg CAP] Fluconazole [Diflucan TAB] 150 mg PO ONCE #2 tablet 03/28/19 Unknown Rx Ibuprofen [Motrin] 800 mg PO Q8HR PRN #20 tablet 03/28/19 Unknown Rx Ondansetron [Zofran Odt] 4 mg PO Q8HR PRN #15 tab.rapdis 03/28/19 Unknown Rx Sulfamethoxazole/Trimethoprim 1 each PO Q12H #20 tablet 03/28/19 Unknown Rx [Bactrim DS TAB] metroNIDAZOLE [Flagyl] 500 mg PO Q12HR #14 tab 03/28/19 Unknown Rx ED Physical Exam - General Limitations: No Limitations General appearance: alert, in no apparent distress - Head Head exam: Present: atraumatic, normocephalic, normal inspection - Eye Eye exam: Present: normal appearance, PERRL, EOMI Pupils: Present: normal accommodation - ENT ENT exam: Present: normal exam, normal orophraynx, mucous membranes moist, TM's normal bilaterally, normal external ear exam - Neck Neck exam: Present: normal inspection, full ROM. Absent: tenderness, lymphadenopathy - Respiratory Respiratory exam: Present: normal lung sounds bilaterally. Absent: respiratory distress, wheezes, rales, stridor, chest wall tenderness, decreased breath soun ds, prolonged expiratory - Cardiovascular Cardiovascular Exam: Present: regular rate, normal rhythm, normal heart sounds. Absent: systolic murmur, diastolic murmur, rubs, gallop - GI/Abdominal GI/Abdominal exam: Present: soft, normal bowel sounds. Absent: tenderness, guarding, rebound, hyperactive bowel sounds, hypoactive bowel sounds, organomegaly, bruit - Rectal Rectal exam: Present: deferred - External exam: Present: normal external exam Speculum exam: Present: vaginal discharge (Thick yellow-green malodorous frothy discharge), cervical discharge (thick yellow-green malodorous discharge) Bi-manual exam: Present: cervical motion tendernes, other (Female Rubber Flap Tuber Machine Operator present). Absent: adnexal tenderness, uterine enlargement, uterine tenderness - Extremities Exam Extremities exam: Present: normal inspection, full ROM, normal capillary refill - Back Exam Back exam: Present: normal inspection, full ROM. Absent: tenderness, CVA tenderness (R), CVA tenderness (L), muscle spasm - Neurological Exam Neurological exam: Present: alert, oriented X3, CN II-XII intact, normal gait, reflexes normal - Psychiatric Psychiatric exam: Present: normal affect, normal mood - Skin Skin exam: Present: warm, dry, intact, normal color. Absent: rash ED Course Vital Signs 03/27/19 21:28 Temperature 98.3 F Pulse Rate 75 Respiratory 14 Rate Blood Pressure 159/96 O2 Sat by Pulse 99 Oximetry - Reevaluation(s) Reevaluation #1: 03/28/19 00:41 This is a 48-year-old female who presented to the ED with dysuria, vaginal discharge with malodorous smell follow the last 1 week. In the ED, patient is alert and oriented 3 and is not in distress. Urinalysis shows acute tract infection. Pelvic exam with female egg caser shows thick yellowish-green frothy and malodorous vaginal discharge with cervical irritation and cervical motion tenderness. Patient was treated in the ED for acute PID. Wet prep shows Trichomonas infection, yeast infection and Gardnerella vaginitis. Patient was treated in the ED for Trichomonas and discharged home on antibiotics and antifungals for yeast infection. Patient was discharged home and advised to have her sexual partner treated at the health department for similar infections. Patient's last return to the ED immediately if symptoms get worse. ED Medical Decision Making - Medical Decision Making This is a 48-year-old female who presented to the ED with dysuria, vaginal discharge with malodorous smell follow the last 1 week. In the ED, patient is alert and oriented 3 and is not in distress. Urinalysis shows acute tract infection. Pelvic exam with female egg caser shows thick yellowish-green frothy and malodorous vaginal discharge with cervical irritation and cervical motion tenderness. Patient was treated in the ED for acute PID. Wet prep shows Trichomonas infection, yeast infection and Gardnerella vaginitis. Patient was treated in the ED for Trichomonas and discharged home on antibiotics and antifungals for yeast infection. Patient was discharged home and advised to have her sexual partner treated at the health department for similar infections. Patient's last return to the ED immediately if symptoms get worse. - Differential Diagnosis acute UTI; Trichomonas, Bacterial vaginosis, Payton vaginitis, STD Critical care attestation.: If time is entered above; I have spent that time in minutes in the direct care of this critically ill patient, excluding procedure time. ED Disposition Clinical Impression: Trichomonas vaginitis, Acute urinary tract infection, Candidal vaginitis, Bacterial vaginosis Disposition: DC-01 TO HOME OR SELFCARE Is pt being admited?: No Does the pt Need Aspirin: No Condition: Stable Instructions: Bacterial Vaginosis (ED), Trichomoniasis (ED), Sexually Transmitted Diseases (ED), Urinary Tract Infection in Women (ED), Vulvovaginal Candidiasis (ED) Additional Instructions: Take medications with food, drink plenty of fluids and follow-up with your primary care physician in 7-10 days for reevaluation. Return to the ED immediately if symptoms get worse. Ensure your sexual partner is treated at the health Department. Prescriptions: Sulfamethoxazole/Trimethoprim [Bactrim DS TAB] 1 each PO Q12H #20 tablet Fluconazole [Diflucan TAB] 150 mg PO ONCE #2 tablet metroNIDAZOLE [Flagyl] 500 mg PO Q12HR #14 tab Ibuprofen [Motrin] 800 mg PO Q8HR PRN #20 tablet PRN Reason: Pain , Severe (7-10) Ondansetron [Zofran Odt] 4 mg PO Q8HR PRN #15 tab.rapdis PRN Reason: Nausea Referrals: PRIMARY CARE, [Primary Care Provider] - 3-5 Days Forms: STI Treatment and Prevention, Work/School Release Form(ED) Time of Disposition: 00:35 Print Language: HEBREW
== END 2019-03-28 01:00 | disposition home or self-care (01) ==
LOC: ED 21:13
DX: N76.0 Acute vaginitis (principal); N39.0 Urinary tract infection, site not specified; B96.89 Other specified bacterial agents as the cause of diseases classified elsewhere; G43.709 Chronic migraine without aura, not intractable, without status migrainosus; I10 Essential (primary) hypertension; M25.571 Pain in right ankle and joints of right foot; G89.29 Other chronic pain; Z88.5 Allergy status to narcotic agent; Z91.041 Radiographic dye allergy status; Z79.1 Long term (current) use of non-steroidal anti-inflammatories (NSAID); Z79.899 Other long term (current) drug therapy; Z98.51 Tubal ligation status; Z90.89 Acquired absence of other organs
CPT/HCPCS: 81001; 81025; 87086; 87210; 87591; 96372; 99284; J0696; Q0162

== ENCOUNTER 2019-05-31 08:19 | Emergency (ER) | payer BC ==
[2019-05-31 08:24] VITALS: BP 145/88
[2019-05-31] MEDS ORDERED: KETOROLAC 60 MG/2 ML INJ IM ONE (08:47)
[2019-05-31] MEDS ORDERED: ONDANSETRON 4 MG ODT TAB PO ONE (08:47)
[2019-05-31] MEDS ORDERED: methylPREDNISolone Sod Succinate 125 MG/2 ML INJ IM ONE (08:47)
[2019-05-31] MEDS ORDERED: traMADol 50 MG TAB PO ONE (08:48)
--- NOTE | 2019-05-31 08:53 | Emergency Department Report ---
ED Back Pain/Injury HPI - General Chief Complaint: Back Pain/Injury Stated Complaint: BACK PAIN Time Seen by Provider: 05/31/19 08:25 Source: patient Limitations: No Limitations - History of Present Illness Initial Comments: Patient presents to the emergency department with a chief complaint of right upper back pain that started this morning upon awakening. 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 Patient states she has pulled muscles of her upper back in the past due to patient care. Patient denies any other pain MD Complaint: back pain -: Sudden Similar Symptoms Previously: Yes Place: home Radiation: none Severity: moderate Severity scale (0 -10): 6 Quality: other (spasm) Consistency: constant Worsens With: movement Context: unknown Associated Symptoms: denies other symptoms, other (patient denies any issue with bowel or bladder) - Related Data Previous Rx's Medication Instructions Recorded Last Taken Type Omeprazole 20 mg PO QDAY #20 tablet. 05/02/18 Unknown Rx amLODIPine [Norvasc] 5 mg PO DAILY #30 tab 06/08/18 Unknown Rx Ibuprofen [Ibuprofen 800] 800 mg PO TID PRN #30 tablet 09/22/18 Unknown Rx Metoclopramide [Reglan] 10 mg PO TID PRN #30 tab 09/22/18 Unknown Rx diphenhydrAMINE [Benadryl CAP] 25 mg PO Q8HR PRN #30 capsule 09/22/18 Unknown Rx Chlorhexidine Mouthwash [Peridex] 15 ml MM BID #473 bottle 10/04/18 Unknown Rx Lidocaine Viscous 2% 5 ml MM Q3H PRN #120 udc 10/04/18 Unknown Rx Docusate Sodium [Colace] 100 mg PO BID PRN #20 capsule 12/05/18 Unknown Rx Ferrous Sulfate [Feosol 325 MG tab] 325 mg PO QDAY #20 tablet 12/05/18 Unknown Rx Ibuprofen [Motrin 800 MG tab] 800 mg PO Q8HR PRN #30 tablet 12/05/18 Unknown Rx medroxyPROGESTERone ACETATE 10 mg PO DAILY #7 tablet 12/05/18 Unknown Rx [Provera] traMADol [Ultram 50 MG tab] 50 mg PO Q6HR PRN #20 tablet 12/05/18 Unknown Rx Ibuprofen [Motrin 800 MG tab] 800 mg PO Q8HR PRN #20 tablet 01/21/19 Unknown Rx Butalb/Acetaminophen/Caffeine 1 cap PO Q6HR PRN #20 cap 03/24/19 Unknown Rx [Fioricet 50-300-40 mg CAP] Fluconazole [Diflucan TAB] 150 mg PO ONCE #2 tablet 03/28/19 Unknown Rx Ibuprofen [Motrin] 800 mg PO Q8HR PRN #20 tablet 03/28/19 Unknown Rx Ondansetron [Zofran Odt] 4 mg PO Q8HR PRN #15 tab.rapdis 03/28/19 Unknown Rx Sulfamethoxazole/Trimethoprim 1 each PO Q12H #20 tablet 03/28/19 Unknown Rx [Bactrim DS TAB] metroNIDAZOLE [Flagyl] 500 mg PO Q12HR #14 tab 03/28/19 Unknown Rx Ketorolac [Toradol] 10 mg PO Q6H PRN #15 tablet 04/16/19 Unknown Rx methOCARBAMOL [Robaxin] 750 mg PO Q8H PRN #21 tablet 04/16/19 Unknown Rx Acetaminophen/Codeine [Tylenol 1 tab PO Q6H PRN #15 tab 05/31/19 Unknown Rx /Codeine # 3 tab] Cyclobenzaprine HCl [Flexeril 5 MG 5 mg PO BID PRN #10 tab 05/31/19 Unknown Rx TAB] Ketorolac [Toradol] 10 mg PO Q6H PRN #12 tablet 05/31/19 Unknown Rx Ondansetron [Zofran Odt] 4 mg PO Q4HR PRN #20 tab.rapdis 05/31/19 Unknown Rx predniSONE [Deltasone] 20 mg PO DAILY #15 tablet 05/31/19 Unknown Rx Allergies Allergy/AdvReac Type Severity Reaction Status Date / Time hydrocodone bitartrate Allergy Itching Verified 04/07/17 10:40 [From Lortab] iodine Allergy Swelling Verified 04/07/17 10:40 ED Review of Systems ROS: Stated complaint: BACK PAIN Other details as noted in HPI Constitutional: denies: chills, fever Eyes: denies: eye pain, eye discharge, vision change ENT: denies: ear pain, throat pain Respiratory: denies: cough, shortness of breath, wheezing Cardiovascular: denies: chest pain, palpitations Endocrine: no symptoms reported Gastrointestinal: denies: abdominal pain, nausea, diarrhea Genitourinary: denies: urgency, dysuria, discharge Musculoskeletal: back pain. denies: joint swelling, arthralgia Skin: denies: rash, lesions Neurological: denies: headache, weakness, paresthesias Psychiatric: denies: anxiety, depression Hematological/Lymphatic: denies: easy bleeding, easy bruising ED Past Medical Hx - Past Medical History Previous Medical History?: Yes Hx Hypertension: Yes (denies) Hx Headaches / Migraines: Yes Additional medical history: fibroids, Chronic pain right ankle. - Surgical History Past Surgical History?: Yes Additional Surgical History: c section X 4. TUBAL LIGATION. TONSILLECTOMY - Social History Smoking Status: Never Smoker Substance Use Type: None - Medications Home Medications: Home Medications Medication Instructions Recorded Confirmed Last Taken Type Omeprazole 20 mg PO QDAY #20 tablet. 05/02/18 Unknown Rx amLODIPine [Norvasc] 5 mg PO DAILY #30 tab 06/08/18 Unknown Rx Ibuprofen [Ibuprofen 800] 800 mg PO TID PRN #30 tablet 09/22/18 Unknown Rx Metoclopramide [Reglan] 10 mg PO TID PRN #30 tab 09/22/18 Unknown Rx diphenhydrAMINE [Benadryl CAP] 25 mg PO Q8HR PRN #30 capsule 09/22/18 Unknown Rx Chlorhexidine Mouthwash [Peridex] 15 ml MM BID #473 bottle 10/04/18 Unknown Rx Lidocaine Viscous 2% 5 ml MM Q3H PRN #120 udc 10/04/18 Unknown Rx Docusate Sodium [Colace] 100 mg PO BID PRN #20 capsule 12/05/18 Unknown Rx Ferrous Sulfate [Feosol 325 MG tab] 325 mg PO QDAY #20 tablet 12/05/18 Unknown Rx Ibuprofen [Motrin 800 MG tab] 800 mg PO Q8HR PRN #30 tablet 12/05/18 Unknown Rx medroxyPROGESTERone ACETATE 10 mg PO DAILY #7 tablet 12/05/18 Unknown Rx [Provera] traMADol [Ultram 50 MG tab] 50 mg PO Q6HR PRN #20 tablet 12/05/18 Unknown Rx Ibuprofen [Motrin 800 MG tab] 800 mg PO Q8HR PRN #20 tablet 01/21/19 Unknown Rx Butalb/Acetaminophen/Caffeine 1 cap PO Q6HR PRN #20 cap 03/24/19 Unknown Rx [Fioricet 50-300-40 mg CAP] Fluconazole [Diflucan TAB] 150 mg PO ONCE #2 tablet 03/28/19 Unknown Rx Ibuprofen [Motrin] 800 mg PO Q8HR PRN #20 tablet 03/28/19 Unknown Rx Ondansetron [Zofran Odt] 4 mg PO Q8HR PRN #15 tab.rapdis 03/28/19 Unknown Rx Sulfamethoxazole/Trimethoprim 1 each PO Q12H #20 tablet 03/28/19 Unknown Rx [Bactrim DS TAB] metroNIDAZOLE [Flagyl] 500 mg PO Q12HR #14 tab 03/28/19 Unknown Rx Ketorolac [Toradol] 10 mg PO Q6H PRN #15 tablet 04/16/19 Unknown Rx methOCARBAMOL [Robaxin] 750 mg PO Q8H PRN #21 tablet 04/16/19 Unknown Rx Acetaminophen/Codeine [Tylenol 1 tab PO Q6H PRN #15 tab 05/31/19 Unknown Rx /Codeine # 3 tab] Cyclobenzaprine HCl [Flexeril 5 MG 5 mg PO BID PRN #10 tab 05/31/19 Unknown Rx TAB] Ketorolac [Toradol] 10 mg PO Q6H PRN #12 tablet 05/31/19 Unknown Rx Ondansetron [Zofran Odt] 4 mg PO Q4HR PRN #20 tab.rapdis 05/31/19 Unknown Rx predniSONE [Deltasone] 20 mg PO DAILY #15 tablet 05/31/19 Unknown Rx ED Physical Exam - General Limitations: No Limitations General appearance: alert, in no apparent distress - Head Head exam: Present: atraumatic, normocephalic - Eye Eye exam: Present: normal appearance, PERRL, EOMI - ENT ENT exam: Present: mucous membranes moist - Neck Neck exam: Present: normal inspection - Respiratory Respiratory exam: Present: normal lung sounds bilaterally. Absent: respiratory distress - Cardiovascular Cardiovascular Exam: Present: regular rate, normal rhythm. Absent: systolic murmur, diastolic murmur, rubs, gallop - GI/Abdominal GI/Abdominal exam: Present: soft, normal bowel sounds - Extremities Exam Extremities exam: Present: normal inspection - Back Exam Back exam: Present: paraspinal tenderness (TTP of right parathoracic region with spasms on exam) - Neurological Exam Neurological exam: Present: alert, oriented X3 - Psychiatric Psychiatric exam: Present: normal affect, normal mood - Skin Skin exam: Present: warm, dry, intact, normal color. Absent: rash ED Course Vital Signs 05/31/19 08:22 Temperature 98.5 F Pulse Rate 72 Respiratory 16 Rate Blood Pressure 145/88 O2 Sat by Pulse 100 Oximetry ED Medical Decision Making - Medical Decision Making Plan of care discussed with patient Critical care attestation.: If time is entered above; I have spent that time in minutes in the direct care of this critically ill patient, excluding procedure time. ED Disposition Clinical Impression: Upper back strain Disposition: DC-01 TO HOME OR SELFCARE Is pt being admited?: No Does the pt Need Aspirin: No Condition: Stable Instructions: Muscle Strain (ED) Additional Instructions: return if worse Referrals: [facility] [Provider Group] - 3-5 Days [facility] [Provider Group] - 3-5 Days Forms: Work/School Release Form(ED) Time of Disposition: 08:50
== END 2019-05-31 09:25 | disposition home or self-care (01) ==
LOC: ED 08:19
DX: S29.012A Strain of muscle and tendon of back wall of thorax, initial encounter (principal); I10 Essential (primary) hypertension; G43.909 Migraine, unspecified, not intractable, without status migrainosus; M25.571 Pain in right ankle and joints of right foot; G89.29 Other chronic pain; Z90.89 Acquired absence of other organs; Z98.51 Tubal ligation status; Z79.899 Other long term (current) drug therapy; Z79.1 Long term (current) use of non-steroidal anti-inflammatories (NSAID); Z88.8 Allergy status to other drugs, medicaments and biological substances; Z91.041 Radiographic dye allergy status; X50.0XXA Overexertion from strenuous movement or load, initial encounter; Y93.89 Activity, other specified; Y92.128 Other place in nursing home as the place of occurrence of the external cause; Y99.8 Other external cause status
CPT/HCPCS: 96372; 99282; J1885; J2930; Q0162

== ENCOUNTER 2019-07-17 00:17 | Emergency (ER) | payer BC ==
[2019-07-17 01:34] LABS: HCG Qualitative,Urine Negative (Negative)
[2019-07-17 01:35] LABS: Bilirubin,Urine NEG (Negative); Blood,Urine NEG (Negative); Color,Urine Yellow (Yellow); Mucus,Urine FEW /HPF; Protein,Urine <15 mg/dL mg/dL (Negative)
--- NOTE | 2019-07-17 03:35 | Emergency Department Report ---
ED Female HPI - General Chief complaint: Abdominal Pain Stated complaint: ABD/VAGINAL PAIN Time Seen by Provider: 07/17/19 03:06 Source: patient Mode of arrival: Ambulatory Limitations: No Limitations - History of Present Illness Initial comments: This man to 49-year-old Afro-N[place]alese female who presents for dysuria frequency and urgency 3 days, states symptoms started this is a cycle stopped. Patient has history of same. Patient denies concern for STI. There is no fever no chills no nausea vomiting no back pain. Symptoms are exacerbated by standing. Symptoms are relieved by nothing dry.. Complaint: dysuria Onset/Timin -: days(s) Radiation: non-radiating Severity: moderate Severity scale (0 -10): 3 Quality: aching Consistency: intermittent Improves with: none Worsens with: urination Are you Now?: No Last Menstrual Period: 07/10/19 EDC: 04/15/20 Associated Symptoms: dysuria - Related Data Sexually active: No Previous Rx's Medication Instructions Recorded Last Taken Type Omeprazole 20 mg PO QDAY #20 tablet. 05/02/18 Unknown Rx amLODIPine [Norvasc] 5 mg PO DAILY #30 tab 06/08/18 Unknown Rx Ibuprofen [Ibuprofen 800] 800 mg PO TID PRN #30 tablet 09/22/18 Unknown Rx Metoclopramide [Reglan] 10 mg PO TID PRN #30 tab 09/22/18 Unknown Rx diphenhydrAMINE [Benadryl CAP] 25 mg PO Q8HR PRN #30 capsule 09/22/18 Unknown Rx Chlorhexidine Mouthwash [Peridex] 15 ml MM BID #473 bottle 10/04/18 Unknown Rx Lidocaine Viscous 2% 5 ml MM Q3H PRN #120 udc 10/04/18 Unknown Rx Docusate Sodium [Colace] 100 mg PO BID PRN #20 capsule 12/05/18 Unknown Rx Ferrous Sulfate [Feosol 325 MG tab] 325 mg PO QDAY #20 tablet 12/05/18 Unknown Rx Ibuprofen [Motrin 800 MG tab] 800 mg PO Q8HR PRN #30 tablet 12/05/18 Unknown Rx medroxyPROGESTERone ACETATE 10 mg PO DAILY #7 tablet 12/05/18 Unknown Rx [Provera] traMADoL [Ultram 50 MG tab] 50 mg PO Q6HR PRN #20 tablet 12/05/18 Unknown Rx Ibuprofen [Motrin 800 MG tab] 800 mg PO Q8HR PRN #20 tablet 01/21/19 Unknown Rx Butalb/Acetaminophen/Caffeine 1 cap PO Q6HR PRN #20 cap 03/24/19 Unknown Rx [Fioricet 50-300-40 mg CAP] Fluconazole [Diflucan TAB] 150 mg PO ONCE #2 tablet 03/28/19 Unknown Rx Ibuprofen [Motrin] 800 mg PO Q8HR PRN #20 tablet 03/28/19 Unknown Rx Ondansetron [Zofran Odt] 4 mg PO Q8HR PRN #15 tab.rapdis 03/28/19 Unknown Rx Sulfamethoxazole/Trimethoprim 1 each PO Q12H #20 tablet 03/28/19 Unknown Rx [Bactrim DS TAB] metroNIDAZOLE [Flagyl] 500 mg PO Q12HR #14 tab 03/28/19 Unknown Rx Ketorolac [Toradol] 10 mg PO Q6H PRN #15 tablet 04/16/19 Unknown Rx methOCARBAMOL [Robaxin] 750 mg PO Q8H PRN #21 tablet 04/16/19 Unknown Rx Acetaminophen/Codeine [Tylenol 1 tab PO Q6H PRN #15 tab 05/31/19 Unknown Rx /Codeine # 3 tab] Cyclobenzaprine HCl [Flexeril 5 MG 5 mg PO BID PRN #10 tab 05/31/19 Unknown Rx TAB] Ketorolac [Toradol] 10 mg PO Q6H PRN #12 tablet 05/31/19 Unknown Rx Ondansetron [Zofran Odt] 4 mg PO Q4HR PRN #20 tab.rapdis 05/31/19 Unknown Rx predniSONE [Deltasone] 20 mg PO DAILY #15 tablet 05/31/19 Unknown Rx Ibuprofen [Motrin 800 MG tab] 800 mg PO Q8HR PRN #30 tablet 07/17/19 Unknown Rx Nitrofurantoin [place]/M-Cryst 100 mg PO BID 7 Days #14 capsule 07/17/19 Unknown Rx [Macrobid CAP] Allergies Allergy/AdvReac Type Severity Reaction Status Date / Time hydrocodone bitartrate Allergy Itching Verified 04/07/17 10:40 [From Lortab] iodine Allergy Swelling Verified 04/07/17 10:40 ED Review of Systems ROS: Stated complaint: ABD/VAGINAL PAIN Other details as noted in HPI Constitutional: denies: chills, fever Eyes: denies: eye pain, eye discharge, vision change ENT: denies: ear pain, throat pain Respiratory: denies: cough, shortness of breath, wheezing Cardiovascular: denies: chest pain, palpitations Endocrine: no symptoms reported Gastrointestinal: denies: abdominal pain, nausea, diarrhea Genitourinary: urgency, dysuria, frequency. denies: hematuria, discharge Musculoskeletal: denies: back pain Skin: denies: rash, lesions Neurological: denies: headache, weakness, paresthesias Psychiatric: denies: anxiety, depression Hematological/Lymphatic: denies: easy bleeding, easy bruising ED Past Medical Hx - Past Medical History Previous Medical History?: Yes Hx Hypertension: Yes (denies) Hx Headaches / Migraines: Yes Additional medical history: fibroids, Chronic pain right ankle. - Surgical History Past Surgical History?: Yes Additional Surgical History: c section X 4. TUBAL LIGATION. TONSILLECTOMY - Social History Smoking Status: Never Smoker Substance Use Type: None - Medications Home Medications: Home Medications Medication Instructions Recorded Confirmed Last Taken Type Omeprazole 20 mg PO QDAY #20 tablet. 05/02/18 Unknown Rx amLODIPine [Norvasc] 5 mg PO DAILY #30 tab 06/08/18 Unknown Rx Ibuprofen [Ibuprofen 800] 800 mg PO TID PRN #30 tablet 09/22/18 Unknown Rx Metoclopramide [Reglan] 10 mg PO TID PRN #30 tab 09/22/18 Unknown Rx diphenhydrAMINE [Benadryl CAP] 25 mg PO Q8HR PRN #30 capsule 09/22/18 Unknown Rx Chlorhexidine Mouthwash [Peridex] 15 ml MM BID #473 bottle 10/04/18 Unknown Rx Lidocaine Viscous 2% 5 ml MM Q3H PRN #120 udc 10/04/18 Unknown Rx Docusate Sodium [Colace] 100 mg PO BID PRN #20 capsule 12/05/18 Unknown Rx Ferrous Sulfate [Feosol 325 MG tab] 325 mg PO QDAY #20 tablet 12/05/18 Unknown Rx Ibuprofen [Motrin 800 MG tab] 800 mg PO Q8HR PRN #30 tablet 12/05/18 Unknown Rx medroxyPROGESTERone ACETATE 10 mg PO DAILY #7 tablet 12/05/18 Unknown Rx [Provera] traMADoL [Ultram 50 MG tab] 50 mg PO Q6HR PRN #20 tablet 12/05/18 Unknown Rx Ibuprofen [Motrin 800 MG tab] 800 mg PO Q8HR PRN #20 tablet 01/21/19 Unknown Rx Butalb/Acetaminophen/Caffeine 1 cap PO Q6HR PRN #20 cap 03/24/19 Unknown Rx [Fioricet 50-300-40 mg CAP] Fluconazole [Diflucan TAB] 150 mg PO ONCE #2 tablet 03/28/19 Unknown Rx Ibuprofen [Motrin] 800 mg PO Q8HR PRN #20 tablet 03/28/19 Unknown Rx Ondansetron [Zofran Odt] 4 mg PO Q8HR PRN #15 tab.rapdis 03/28/19 Unknown Rx Sulfamethoxazole/Trimethoprim 1 each PO Q12H #20 tablet 03/28/19 Unknown Rx [Bactrim DS TAB] metroNIDAZOLE [Flagyl] 500 mg PO Q12HR #14 tab 03/28/19 Unknown Rx Ketorolac [Toradol] 10 mg PO Q6H PRN #15 tablet 04/16/19 Unknown Rx methOCARBAMOL [Robaxin] 750 mg PO Q8H PRN #21 tablet 04/16/19 Unknown Rx Acetaminophen/Codeine [Tylenol 1 tab PO Q6H PRN #15 tab 05/31/19 Unknown Rx /Codeine # 3 tab] Cyclobenzaprine HCl [Flexeril 5 MG 5 mg PO BID PRN #10 tab 05/31/19 Unknown Rx TAB] Ketorolac [Toradol] 10 mg PO Q6H PRN #12 tablet 05/31/19 Unknown Rx Ondansetron [Zofran Odt] 4 mg PO Q4HR PRN #20 tab.rapdis 05/31/19 Unknown Rx predniSONE [Deltasone] 20 mg PO DAILY #15 tablet 05/31/19 Unknown Rx Ibuprofen [Motrin 800 MG tab] 800 mg PO Q8HR PRN #30 tablet 07/17/19 Unknown Rx Nitrofurantoin [place]/M-Cryst 100 mg PO BID 7 Days #14 capsule 07/17/19 Unknown Rx [Macrobid CAP] ED Physical Exam - General Limitations: No Limitations General appearance: alert, in no apparent distress - Head Head exam: Present: atraumatic, normocephalic - Eye Eye exam: Present: normal appearance, PERRL, EOMI Pupils: Present: normal accommodation - ENT ENT exam: Present: mucous membranes moist - Neck Neck exam: Present: normal inspection - Respiratory Respiratory exam: Present: normal lung sounds bilaterally. Absent: respiratory distress, wheezes, stridor - Cardiovascular Cardiovascular Exam: Present: regular rate, normal rhythm, normal heart sounds. Absent: systolic murmur, diastolic murmur, rubs, gallop - GI/Abdominal GI/Abdominal exam: Present: soft, normal bowel sounds. Absent: distended, tenderness, bruit, hernia - Rectal Rectal exam: Present: deferred - Extremities Exam Extremities exam: Present: normal inspection - Back Exam Back exam: Present: normal inspection, full ROM. Absent: tenderness, CVA tenderness (R), CVA tenderness (L), rash noted - Neurological Exam Neurological exam: Present: alert, oriented X3, CN II-XII intact, normal gait, reflexes normal. Absent: motor sensory deficit - Psychiatric Psychiatric exam: Present: normal affect, normal mood - Skin Skin exam: Present: warm, dry, intact, normal color. Absent: rash ED Course Vital Signs 07/17/19 00:22 Temperature 98.3 F Pulse Rate 87 Respiratory 18 Rate Blood Pressure 153/85 O2 Sat by Pulse 99 Oximetry ED Medical Decision Making - Lab Data Labs 07/17/19 01:15 Urine Color Yellow Urine Turbidity Clear Urine pH 6.0 Ur Specific [place] 1.014 Urine Protein <15 mg/dl Urine Glucose (UA) Neg Urine Ketones Neg Urine Blood Neg Urine Nitrite Neg Ur Reducing Substances Not Reportable Urine Bilirubin Neg Urine Ictotest Not Reportable Urine Urobilinogen 2.0 Ur Leukocyte Esterase Lg Urine WBC (Auto) 23.0 H Urine RBC (Auto) 13.0 U Epithel Cells (Auto) 2.0 Urine Mucus Few Urine HCG, Qual Negative - Medical Decision Making this is a UTI with ua pos: for leuke, wbc ,bact, plan , macrobid, diflucan, follow up with pcp in 2-3 dsys, pt verbalized agreement and understanding of discharge plan. Critical care attestation.: If time is entered above; I have spent that time in minutes in the direct care of this critically ill patient, excluding procedure time. ED Disposition Clinical Impression: UTI (urinary tract infection) Qualifiers: Urinary tract infection type: acute cystitis Hematuria presence: without hematuria Qualified Code(s): N30.00 - Acute cystitis without hematuria Disposition: TO HOME OR SELFCARE Is pt being admited?: No Does the pt Need Aspirin: No Condition: Stable Instructions: Abdominal Pain (ED), Urinary Tract Infection in Women (ED) Prescriptions: Nitrofurantoin [place]/M-Cryst [Macrobid CAP] 100 mg PO BID 7 Days #14 capsule Ibuprofen [Motrin 800 MG tab] 800 mg PO Q8HR PRN #30 tablet PRN Reason: pain Referrals: [facility] [Provider Group] - 3-5 Days Forms: Work/School Release Form(ED) Time of Disposition: 03:42
[2019-07-17 04:23] VITALS: BP 142/88
== END 2019-07-17 04:23 | disposition home or self-care (01) ==
LOC: ED 00:17
DX: N39.0 Urinary tract infection, site not specified (principal); I10 Essential (primary) hypertension; G43.909 Migraine, unspecified, not intractable, without status migrainosus; Z98.51 Tubal ligation status; Z98.890 Other specified postprocedural states; Z79.1 Long term (current) use of non-steroidal anti-inflammatories (NSAID); Z79.899 Other long term (current) drug therapy; Z88.8 Allergy status to other drugs, medicaments and biological substances
CPT/HCPCS: 81001; 81025; 87086; 99282

== ENCOUNTER 2019-07-22 20:22 | Emergency (ER) | payer BC ==
--- NOTE | 2019-07-22 21:19 | Event Note ---
ED Screening Note Date of service: 07/22/19 Time: 21:18 ED Screening Note: Pt complains of vaginal discharge x 1 week denies dysuria or vaginal pain/bleeding treated for UTI here recently-Urine culture negative for bacteria This initial assessment/diagnostic orders/clinical plan/treatment(s) is/are subject to change based on patients health status, clinical progression and re- assessment by fellow clinical providers in the ED. Further treatment and workup at subsequent clinical providers discretion. Patient/guardian urged not to elope from the ED as their condition may be serious if not clinically assessed and managed. Initial orders include: ACC
[2019-07-22 22:34] LABS: HCG Qualitative,Urine Negative (Negative)
--- NOTE | 2019-07-23 00:34 | Emergency Department Report ---
Chief Complaint: Urogenital-Female Stated Complaint: UTI Time Seen by Provider: 07/22/19 21:14 - HPI History of Present Illness: Pt complains of vaginal discharge x 1 week denies dysuria or vaginal pain/bleeding treated for UTI here recently-Urine culture negative for bacteria - Exam Vital Signs: Vital Signs 07/22/19 20:24 Temperature 98.5 F Pulse Rate 101 H Respiratory 18 Rate Blood Pressure 150/84 O2 Sat by Pulse 98 Oximetry MSE screening note: Focused history and physical exam performed. Due to findings the following was ordered: Pt complains of vaginal discharge x 1 week denies dysuria or vaginal pain/bleeding treated for UTI here recently-Urine culture negative for bacteria Patient referred to [facility] ED Disposition for MSE Disposition: MED SCREENING EXAM-LEFT Is pt being admited?: No Does the pt Need Aspirin: No Condition: Stable Referrals: [facility] [Provider Group] - 3-5 Days [facility] [Provider Group] - 3-5 Days [facility] [Provider Group] - 3-5 Days
[2019-07-23 01:24] VITALS: BP 169/90
== END 2019-07-23 00:35 | disposition left against medical advice (07) ==
LOC: ED 20:22
DX: N89.8 Other specified noninflammatory disorders of vagina (principal)
CPT/HCPCS: 81025

== ENCOUNTER 2019-08-04 14:25 | Emergency (ER) | payer BC, OTHER ==
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
[2019-08-04] MEDS ORDERED: KETOROLAC 30 MG/1 ML INJ IM ONE (18:33)
[2019-08-04 18:46] VITALS: BP 131/74
== END 2019-08-04 18:45 | disposition home or self-care (01) ==
LOC: ED 14:25
DX: S39.012A Strain of muscle, fascia and tendon of lower back, initial encounter (principal); M54.41 Lumbago with sciatica, right side; G43.909 Migraine, unspecified, not intractable, without status migrainosus; Z98.51 Tubal ligation status; Z90.89 Acquired absence of other organs; Z79.899 Other long term (current) drug therapy; Z88.5 Allergy status to narcotic agent; Z91.041 Radiographic dye allergy status; V49.49XA Driver injured in collision with other motor vehicles in traffic accident, initial encounter; Y93.89 Activity, other specified; Y92.410 Unspecified street and highway as the place of occurrence of the external cause; Y99.8 Other external cause status
CPT/HCPCS: 96372; 99282; J1885

== ENCOUNTER 2019-12-07 19:56 | Emergency (ER) | payer BC ==
[2019-12-07] MEDS ORDERED: METOCLOPRAMIDE 10 MG TAB PO ONE (22:29)
[2019-12-07] MEDS ORDERED: ACETAMINOPHEN 500 MG TAB PO ONE (22:29)
[2019-12-07] MEDS ORDERED: diphenhydrAMINE 25 MG CAP PO ONE (22:29)
[2019-12-07] MEDS ORDERED: dexAMETHasone 20 MG/5 ML VIAL IM ONE (22:29)
--- NOTE | 2019-12-07 22:46 | Emergency Department Report ---
ED Headache HPI - General Chief Complaint: Headache Stated Complaint: HBP HEADACHE x3 DAYS Time Seen by Provider: 12/07/19 22:28 - History of Present Illness Initial Comments: Ms. Jacobo is a 49 y/o aaf with hx of headaches who presetns for frontal headache rated at 5/10 aching for past 3 days, she denies no recent headtrauma, has history of migraine headaches associated with photophobia and phonophobia. She denies nausea, no vomiting or visual changes. No tinnitus. No neck pain. Currently managed with [id number] NSAIDS. Symptoms not been relieved by OTC nsaids. Timing/Duration: other (3 days) Quality: moderate Head Injury Location: frontal Associated Symptoms: denies: facial pain, fever/chills, nausea/vomiting, stiff neck, vision changes Allergies/Adverse Reactions: Allergies hydrocodone bitartrate [From Lortab] Allergy (Verified 04/07/17 10:40) Itching iodine Allergy (Verified 04/07/17 10:40) Swelling Home Medications: Ambulatory Orders Omeprazole 20 mg PO QDAY #20 tablet. 05/02/18 amLODIPine [Norvasc] 5 mg PO DAILY #30 tab 06/08/18 Ibuprofen [Ibuprofen 800] 800 mg PO TID PRN #30 tablet 09/22/18 Metoclopramide [Reglan] 10 mg PO TID PRN #30 tab 09/22/18 diphenhydrAMINE [Benadryl CAP] 25 mg PO Q8HR PRN #30 capsule 09/22/18 Chlorhexidine Mouthwash [Peridex] 15 ml MM BID #473 bottle 10/04/18 Lidocaine Viscous 2% 5 ml MM Q3H PRN #120 udc 10/04/18 Docusate Sodium [Colace] 100 mg PO BID PRN #20 capsule 12/05/18 Ferrous Sulfate [Feosol 325 MG tab] 325 mg PO QDAY #20 tablet 12/05/18 Ibuprofen [Motrin 800 MG tab] 800 mg PO Q8HR PRN #30 tablet 12/05/18 medroxyPROGESTERone ACETATE [Provera] 10 mg PO DAILY #7 tablet 12/05/18 traMADoL [Ultram 50 MG tab] 50 mg PO Q6HR PRN #20 tablet 12/05/18 Ibuprofen [Motrin 800 MG tab] 800 mg PO Q8HR PRN #20 tablet 01/21/19 Butalb/Acetaminophen/Caffeine [Fioricet 50-300-40 mg CAP] 1 cap PO Q6HR PRN #20 cap 03/24/19 Fluconazole (Nf) [Diflucan TAB] 150 mg PO ONCE #2 tablet 03/28/19 Ondansetron [Zofran Odt] 4 mg PO Q8HR PRN #15 tab.rapdis 03/28/19 Sulfamethoxazole/Trimethoprim [Bactrim DS TAB] 1 each PO Q12H #20 tablet 03/28/19 metroNIDAZOLE [Flagyl] 500 mg PO Q12HR #14 tab 03/28/19 Ketorolac [Toradol] 10 mg PO Q6H PRN #15 tablet 04/16/19 methOCARBAMOL [Robaxin] 750 mg PO Q8H PRN #21 tablet 04/16/19 Acetaminophen/Codeine [Tylenol /Codeine # 3 tab] 1 tab PO Q6H PRN #15 tab 05/31/19 Cyclobenzaprine HCl [Flexeril 5 MG TAB] 5 mg PO BID PRN #10 tab 05/31/19 Ketorolac [Toradol] 10 mg PO Q6H PRN #12 tablet 05/31/19 Ondansetron [Zofran Odt] 4 mg PO Q4HR PRN #20 tab.rapdis 05/31/19 predniSONE [Deltasone] 20 mg PO DAILY #15 tablet 05/31/19 Ibuprofen [Motrin 800 MG tab] 800 mg PO Q8HR PRN #30 tablet 07/17/19 Nitrofurantoin Edd[place]/M-Cryst [Macrobid CAP] 100 mg PO BID 7 Days #14 capsule 07/17/19 Ibuprofen [Motrin 800 MG tab] 800 mg PO Q8HR PRN #20 tablet 08/04/19 Methocarbamol [Robaxin] 500 mg PO BID PRN #15 tablet 08/04/19 Acetaminophen [Acetaminophen TAB] 1,000 mg PO Q6HR PRN #30 tablet 12/07/19 Metoclopramide [Reglan] 10 mg PO Q6H PRN #30 tablet 12/07/19 diphenhydrAMINE [Benadryl CAP] 25 mg PO Q6HR PRN #30 capsule 12/07/19 ED Review of Systems ROS: Stated complaint: HBP HEADACHE x3 DAYS Other details as noted in HPI Constitutional: denies: chills, fever Eyes: denies: eye pain, eye discharge, vision change ENT: denies: ear pain, throat pain Respiratory: denies: cough, shortness of breath, wheezing Cardiovascular: denies: chest pain, palpitations Endocrine: no symptoms reported Gastrointestinal: denies: abdominal pain, nausea, vomiting, diarrhea Genitourinary: denies: urgency, dysuria, discharge Musculoskeletal: denies: back pain, joint swelling, arthralgia, myalgia Skin: denies: rash, lesions Neurological: headache. denies: weakness, numbness, paresthesias, confusion, abnormal gait, vertigo Psychiatric: denies: anxiety, depression Hematological/Lymphatic: denies: easy bleeding, easy bruising ED Past Medical Hx - Past Medical History Hx Hypertension: Yes (denies) Hx Headaches / Migraines: Yes Additional medical history: fibroids, Chronic pain right ankle. - Surgical History Additional Surgical History: c section X 4. TUBAL LIGATION. TONSILLECTOMY - Social History Smoking Status: Never Smoker Substance Use Type: None - Medications Home Medications: Home Medications Medication Instructions Recorded Confirmed Last Taken Type Omeprazole 20 mg PO QDAY #20 tablet. 05/02/18 Unknown Rx amLODIPine [Norvasc] 5 mg PO DAILY #30 tab 06/08/18 Unknown Rx Ibuprofen [Ibuprofen 800] 800 mg PO TID PRN #30 tablet 09/22/18 Unknown Rx Metoclopramide [Reglan] 10 mg PO TID PRN #30 tab 09/22/18 Unknown Rx diphenhydrAMINE [Benadryl CAP] 25 mg PO Q8HR PRN #30 capsule 09/22/18 Unknown Rx Chlorhexidine Mouthwash [Peridex] 15 ml MM BID #473 bottle 10/04/18 Unknown Rx Lidocaine Viscous 2% 5 ml MM Q3H PRN #120 udc 10/04/18 Unknown Rx Docusate Sodium [Colace] 100 mg PO BID PRN #20 capsule 12/05/18 Unknown Rx Ferrous Sulfate [Feosol 325 MG tab] 325 mg PO QDAY #20 tablet 12/05/18 Unknown Rx Ibuprofen [Motrin 800 MG tab] 800 mg PO Q8HR PRN #30 tablet 12/05/18 Unknown Rx medroxyPROGESTERone ACETATE 10 mg PO DAILY #7 tablet 12/05/18 Unknown Rx [Provera] traMADoL [Ultram 50 MG tab] 50 mg PO Q6HR PRN #20 tablet 12/05/18 Unknown Rx Ibuprofen [Motrin 800 MG tab] 800 mg PO Q8HR PRN #20 tablet 01/21/19 Unknown Rx Butalb/Acetaminophen/Caffeine 1 cap PO Q6HR PRN #20 cap 03/24/19 Unknown Rx [Fioricet 50-300-40 mg CAP] Fluconazole (Nf) [Diflucan TAB] 150 mg PO ONCE #2 tablet 03/28/19 Unknown Rx Ondansetron [Zofran Odt] 4 mg PO Q8HR PRN #15 tab.rapdis 03/28/19 Unknown Rx Sulfamethoxazole/Trimethoprim 1 each PO Q12H #20 tablet 03/28/19 Unknown Rx [Bactrim DS TAB] metroNIDAZOLE [Flagyl] 500 mg PO Q12HR #14 tab 03/28/19 Unknown Rx Ketorolac [Toradol] 10 mg PO Q6H PRN #15 tablet 04/16/19 Unknown Rx methOCARBAMOL [Robaxin] 750 mg PO Q8H PRN #21 tablet 04/16/19 Unknown Rx Acetaminophen/Codeine [Tylenol 1 tab PO Q6H PRN #15 tab 05/31/19 Unknown Rx /Codeine # 3 tab] Cyclobenzaprine HCl [Flexeril 5 MG 5 mg PO BID PRN #10 tab 05/31/19 Unknown Rx TAB] Ketorolac [Toradol] 10 mg PO Q6H PRN #12 tablet 05/31/19 Unknown Rx Ondansetron [Zofran Odt] 4 mg PO Q4HR PRN #20 tab.rapdis 05/31/19 Unknown Rx predniSONE [Deltasone] 20 mg PO DAILY #15 tablet 05/31/19 Unknown Rx Ibuprofen [Motrin 800 MG tab] 800 mg PO Q8HR PRN #30 tablet 07/17/19 Unknown Rx Nitrofurantoin Eddy/M-Cryst 100 mg PO BID 7 Days #14 capsule 07/17/19 Unknown Rx [Macrobid CAP] Ibuprofen [Motrin 800 MG tab] 800 mg PO Q8HR PRN #20 tablet 08/04/19 Unknown Rx Methocarbamol [Robaxin] 500 mg PO BID PRN #15 tablet 08/04/19 Unknown Rx Acetaminophen [Acetaminophen TAB] 1,000 mg PO Q6HR PRN #30 tablet 12/07/19 Unknown Rx Metoclopramide [Reglan] 10 mg PO Q6H PRN #30 tablet 12/07/19 Unknown Rx diphenhydrAMINE [Benadryl CAP] 25 mg PO Q6HR PRN #30 capsule 12/07/19 Unknown Rx ED Physical Exam - General Limitations: No Limitations General appearance: alert, in no apparent distress - Head Head exam: Present: atraumatic, normocephalic - Eye Eye exam: Present: normal appearance, PERRL, EOMI Pupils: Present: normal accommodation - ENT ENT exam: Present: normal exam, normal orophraynx, mucous membranes moist, TM's normal bilaterally, normal external ear exam - Neck Neck exam: Present: normal inspection, full ROM. Absent: tenderness (no posterior vertebral point tenderness ), meningismus, lymphadenopathy, thyromegaly - Expanded Neck Exam Expanded Neck exam: Absent: midline deformity, anterior neck swelling, thyroid mass, carotid bruit, tracheal deviation - Respiratory Respiratory exam: Present: normal lung sounds bilaterally. Absent: respiratory distress, wheezes, stridor, chest wall tenderness - Cardiovascular Cardiovascular Exam: Present: regular rate, normal rhythm, normal heart sounds. Absent: systolic murmur, diastolic murmur, rubs, gallop - GI/Abdominal GI/Abdominal exam: Present: soft, normal bowel sounds. Absent: distended, tenderness, bruit, hernia - Rectal Rectal exam: Present: deferred - Extremities Exam Extremities exam: Present: normal inspection, full ROM, normal capillary refill. Absent: tenderness, calf tenderness - Back Exam Back exam: Present: normal inspection, full ROM. Absent: tenderness, CVA tenderness (R), CVA tenderness (L), vertebral tenderness - Neurological Exam Neurological exam: Present: alert, oriented X3, CN II-XII intact, normal gait, reflexes normal. Absent: motor sensory deficit - Expanded Neurological Exam Expanded Patient oriented to: Present: person, place, time Speech: Present: fluid speech Cranial nerves: EOM's Intact: Normal, Tongue Deviation: Normal, Nystagmus: Normal, Facial Sensation: Normal Motor strength exam: RUE: 5, LUE: 5, RLE: 5, LLE: 5 Best Eye Response ([place]): (4) open spontaneously Best Motor Response ([place]): (6) obeys commands Best Verbal Response (Rickey): (5) oriented Rickey Total: 15 - Psychiatric Psychiatric exam: Present: normal affect, normal mood - Skin Skin exam: Present: warm, dry, intact, normal color. Absent: rash ED Course Vital Signs 12/07/19 20:05 Temperature 98.3 F Pulse Rate 82 Respiratory 18 Rate Blood Pressure 144/90 [Right] O2 Sat by Pulse 100 Oximetry ED Medical Decision Making - Medical Decision Making headache is improved, plan: dc to home with rx , pt will follow up with pcp tomorrow, pt verbalized agreemen and understanding of discharge plan. Critical care attestation.: If time is entered above; I have spent that time in minutes in the direct care of this critically ill patient, excluding procedure time. ED Disposition Clinical Impression: Headache Qualifiers: Headache type: unspecified Headache chronicity pattern: acute headache Intractability: not intractable Qualified Code(s): R51 - Headache Disposition: DC-01 TO HOME OR SELFCARE Is pt being admited?: No Does the pt Need Aspirin: No Condition: Stable Instructions: Acute Headache (ED) Prescriptions: Acetaminophen [Acetaminophen TAB] 1,000 mg PO Q6HR PRN #30 tablet PRN Reason: Headache diphenhydrAMINE [Benadryl CAP] 25 mg PO Q6HR PRN #30 capsule PRN Reason: Headache Metoclopramide [Reglan] 10 mg PO Q6H PRN #30 tablet PRN Reason: Headache Referrals: JOAQUIN SAM MD [Staff Physician] - 3-5 Days Forms: Work/School Release Form(ED) Time of Disposition: 22:57
[2019-12-07 23:32] VITALS: BP 132/88
== END 2019-12-07 23:38 | disposition home or self-care (01) ==
LOC: ED 19:56
DX: R51 Headache (principal); H53.149 Visual discomfort, unspecified
CPT/HCPCS: 99282; J1100; 96372

== ENCOUNTER 2020-05-20 18:00 | Emergency (ER) | payer BC ==
--- NOTE | 2020-05-20 18:21 | Emergency Department Report ---
Blank Doc - Documentation Documentation: 50-year-old female that presents with neck and headache x several days. Denies any trauma or injuries. Exam: neuro exam unremarkable. This initial assessment/diagnostic orders/clinical plan/treatment(s) is/are subject to change based on patient's health status, clinical progression and re- assessment by fellow clinical providers in the ED. Further treatment and workup at subsequent clinical providers discretion. Patient/guardians urged not to elope from the ED as their condition may be serious if not clinically assessed and managed. Initial orders include: 1- Patient sent to [facility] for further evaluation and treatment
[2020-05-20 18:24] VITALS: BP 169/105
[2020-05-20] MEDS ORDERED: KETOROLAC 30 MG/1 ML INJ IV STA (20:35)
[2020-05-20] MEDS ORDERED: SODIUM CHLORIDE 0.9% 1000 ML 1,000 ML IV ONE (20:35)
[2020-05-20] MEDS ORDERED: diphenhydrAMINE 50 MG/ML VIAL IV STA (20:35)
[2020-05-20] MEDS ORDERED: METOCLOPRAMIDE 10 MG/2 ML INJ IV STA (20:35)
--- NOTE | 2020-05-20 22:42 | Emergency Department Report ---
ED Headache HPI - General Chief Complaint: Headache Stated Complaint: HEAD ACHE X3DAYS/NECK PAIN Time Seen by Provider: 05/20/20 18:20 Source: patient - History of Present Illness Initial Comments: 50-year-old F [place] female with past medical history of migraine headaches asthma department complaining of a flareup for the last 3 days the headache is to the parietal region and does radiate down to the side of her neck associated with arm pain she reports no photophobia no scotomas, no fever, chills, sweats no presyncope no blurred vision no loss of vision. States that usually for her migraine she takes Excedrin however has not tried it for this exacerbation for reasons that are unknown. She reports no head trauma. No pre-existing medical Conditions. Quality: moderate Recent Head Trauma: frequent headaches Associated Symptoms: denies: confusion, facial pain, fever/chills, nasal congestion, nasal drainage Allergies/Adverse Reactions: Allergies hydrocodone bitartrate [From Lortab] Allergy (Verified 04/07/17 10:40) Itching iodine Allergy (Verified 04/07/17 10:40) Swelling Home Medications: Ambulatory Orders Omeprazole 20 mg PO QDAY #20 tablet. 05/02/18 amLODIPine [Norvasc] 5 mg PO DAILY #30 tab 06/08/18 Ibuprofen [Ibuprofen 800] 800 mg PO TID PRN #30 tablet 09/22/18 Metoclopramide [Reglan] 10 mg PO TID PRN #30 tab 09/22/18 diphenhydrAMINE [Benadryl CAP] 25 mg PO Q8HR PRN #30 capsule 09/22/18 Chlorhexidine Mouthwash [Peridex] 15 ml MM BID #473 bottle 10/04/18 Lidocaine Viscous 2% 5 ml MM Q3H PRN #120 udc 10/04/18 Docusate Sodium [Colace] 100 mg PO BID PRN #20 capsule 12/05/18 Ferrous Sulfate [Feosol 325 MG tab] 325 mg PO QDAY #20 tablet 12/05/18 Ibuprofen [Motrin 800 MG tab] 800 mg PO Q8HR PRN #30 tablet 12/05/18 medroxyPROGESTERone ACETATE [Provera] 10 mg PO DAILY #7 tablet 12/05/18 traMADoL [Ultram 50 MG tab] 50 mg PO Q6HR PRN #20 tablet 12/05/18 Ibuprofen [Motrin 800 MG tab] 800 mg PO Q8HR PRN #20 tablet 01/21/19 Butalb/Acetaminophen/Caffeine [Fioricet 50-300-40 mg CAP] 1 cap PO Q6HR PRN #20 cap 03/24/19 Fluconazole (Nf) [Diflucan TAB] 150 mg PO ONCE #2 tablet 03/28/19 Ondansetron [Zofran Odt] 4 mg PO Q8HR PRN #15 tab.rapdis 03/28/19 Sulfamethoxazole/Trimethoprim [Bactrim DS TAB] 1 each PO Q12H #20 tablet metroNIDAZOLE [Flagyl] 500 mg PO Q12HR #14 tab 03/28/19 Ketorolac [Toradol] 10 mg PO Q6H PRN #15 tablet 04/16/19 methOCARBAMOL [Robaxin] 750 mg PO Q8H PRN #21 tablet 04/16/19 Acetaminophen/Codeine [Tylenol /Codeine # 3 tab] 1 tab PO Q6H PRN #15 tab 05/31/19 Cyclobenzaprine HCl [Flexeril 5 MG TAB] 5 mg PO BID PRN #10 tab 05/31/19 Ketorolac [Toradol] 10 mg PO Q6H PRN #12 tablet 05/31/19 Ondansetron [Zofran Odt] 4 mg PO Q4HR PRN #20 tab.rapdis 05/31/19 predniSONE [Deltasone] 20 mg PO DAILY #15 tablet 05/31/19 Ibuprofen [Motrin 800 MG tab] 800 mg PO Q8HR PRN #30 tablet 07/17/19 Nitrofurantoin [place]/M-Cryst [Macrobid CAP] 100 mg PO BID 7 Days #14 capsule 07/17/19 Ibuprofen [Motrin 800 MG tab] 800 mg PO Q8HR PRN #20 tablet 08/04/19 Methocarbamol [Robaxin] 500 mg PO BID PRN #15 tablet 08/04/19 Acetaminophen [Acetaminophen TAB] 1,000 mg PO Q6HR PRN #30 tablet 12/07/19 Metoclopramide [Reglan] 10 mg PO Q6H PRN #30 tablet 12/07/19 diphenhydrAMINE [Benadryl CAP] 25 mg PO Q6HR PRN #30 capsule 12/07/19 Butalbit/Acetamin/Caff/Codeine [Fioricet-Cod 84-764-00-30 Cap] 1 each PO Q6H PRN #20 capsule 05/20/20 ED Review of Systems ROS: Stated complaint: HEAD ACHE X3DAYS/NECK PAIN Other details as noted in HPI Comment: All other systems reviewed and negative ED Past Medical Hx - Past Medical History Previous Medical History?: Yes Hx Hypertension: Yes (denies) Hx Headaches / Migraines: Yes Additional medical history: fibroids, Chronic pain right ankle. - Surgical History Past Surgical History?: Yes Additional Surgical History: c section X 4. TUBAL LIGATION. TONSILLECTOMY - Social History Smoking Status: Never Smoker Substance Use Type: None - Medications Home Medications: Home Medications Medication Instructions Recorded Confirmed Last Taken Type Omeprazole 20 mg PO QDAY #20 tablet. 05/02/18 Unknown Rx amLODIPine [Norvasc] 5 mg PO DAILY #30 tab 06/08/18 Unknown Rx Ibuprofen [Ibuprofen 800] 800 mg PO TID PRN #30 tablet 09/22/18 Unknown Rx Metoclopramide [Reglan] 10 mg PO TID PRN #30 tab 09/22/18 Unknown Rx diphenhydrAMINE [Benadryl CAP] 25 mg PO Q8HR PRN #30 capsule 09/22/18 Unknown Rx Chlorhexidine Mouthwash [Peridex] 15 ml MM BID #473 bottle 10/04/18 Unknown Rx Lidocaine Viscous 2% 5 ml MM Q3H PRN #120 udc 10/04/18 Unknown Rx Docusate Sodium [Colace] 100 mg PO BID PRN #20 capsule 12/05/18 Unknown Rx Ferrous Sulfate [Feosol 325 MG tab] 325 mg PO QDAY #20 tablet 12/05/18 Unknown Rx Ibuprofen [Motrin 800 MG tab] 800 mg PO Q8HR PRN #30 tablet 12/05/18 Unknown Rx medroxyPROGESTERone ACETATE 10 mg PO DAILY #7 tablet 12/05/18 Unknown Rx [Provera] traMADoL [Ultram 50 MG tab] 50 mg PO Q6HR PRN #20 tablet 12/05/18 Unknown Rx Ibuprofen [Motrin 800 MG tab] 800 mg PO Q8HR PRN #20 tablet 01/21/19 Unknown Rx Butalb/Acetaminophen/Caffeine 1 cap PO Q6HR PRN #20 cap 03/24/19 Unknown Rx [Fioricet 50-300-40 mg CAP] Fluconazole (Nf) [Diflucan TAB] 150 mg PO ONCE #2 tablet 03/28/19 Unknown Rx Ondansetron [Zofran Odt] 4 mg PO Q8HR PRN #15 tab.rapdis 03/28/19 Unknown Rx Sulfamethoxazole/Trimethoprim 1 each PO Q12H #20 tablet 03/28/19 Unknown Rx [Bactrim DS TAB] metroNIDAZOLE [Flagyl] 500 mg PO Q12HR #14 tab 03/28/19 Unknown Rx Ketorolac [Toradol] 10 mg PO Q6H PRN #15 tablet 04/16/19 Unknown Rx methOCARBAMOL [Robaxin] 750 mg PO Q8H PRN #21 tablet 04/16/19 Unknown Rx Acetaminophen/Codeine [Tylenol 1 tab PO Q6H PRN #15 tab 05/31/19 Unknown Rx /Codeine # 3 tab] Cyclobenzaprine HCl [Flexeril 5 MG 5 mg PO BID PRN #10 tab 05/31/19 Unknown Rx TAB] Ketorolac [Toradol] 10 mg PO Q6H PRN #12 tablet 05/31/19 Unknown Rx Ondansetron [Zofran Odt] 4 mg PO Q4HR PRN #20 tab.rapdis 05/31/19 Unknown Rx predniSONE [Deltasone] 20 mg PO DAILY #15 tablet 05/31/19 Unknown Rx Ibuprofen [Motrin 800 MG tab] 800 mg PO Q8HR PRN #30 tablet 07/17/19 Unknown Rx Nitrofurantoin [place]/M-Cryst 100 mg PO BID 7 Days #14 capsule 07/17/19 Unknown Rx [Macrobid CAP] Ibuprofen [Motrin 800 MG tab] 800 mg PO Q8HR PRN #20 tablet 08/04/19 Unknown Rx Methocarbamol [Robaxin] 500 mg PO BID PRN #15 tablet 08/04/19 Unknown Rx Acetaminophen [Acetaminophen TAB] 1,000 mg PO Q6HR PRN #30 tablet 12/07/19 Unknown Rx Metoclopramide [Reglan] 10 mg PO Q6H PRN #30 tablet 12/07/19 Unknown Rx diphenhydrAMINE [Benadryl CAP] 25 mg PO Q6HR PRN #30 capsule 12/07/19 Unknown Rx Butalbit/Acetamin/Caff/Codeine 1 each PO Q6H PRN #20 capsule 05/20/20 Unknown Rx [Fioricet-Cod 06-949-04-30 Cap] ED Physical Exam - General Limitations: No Limitations General appearance: alert, in no apparent distress - Head Head exam: Present: atraumatic, normocephalic - Eye Eye exam: Present: normal appearance, PERRL Pupils: Present: normal accommodation - ENT ENT exam: Present: normal exam, mucous membranes moist - Neck Neck exam: Present: normal inspection, full ROM - Respiratory Respiratory exam: Present: normal lung sounds bilaterally. Absent: respiratory distress, wheezes - Cardiovascular Cardiovascular Exam: Present: regular rate, normal rhythm. Absent: systolic murmur, diastolic murmur, rubs, gallop - GI/Abdominal GI/Abdominal exam: Present: soft, normal bowel sounds - Extremities Exam Extremities exam: Present: normal inspection, normal capillary refill - Back Exam Back exam: Present: normal inspection - Neurological Exam Neurological exam: Present: alert, oriented X3, CN II-XII intact, normal gait - Psychiatric Psychiatric exam: Present: normal affect, normal mood. Absent: anxious, flat affect - Skin Skin exam: Present: warm, dry, intact, normal color. Absent: rash ED Course Vital Signs 05/20/20 05/20/20 18:22 20:45 Temperature 98.0 F Pulse Rate 77 Respiratory 20 18 Rate Blood Pressure 169/105 O2 Sat by Pulse 99 Oximetry ED Medical Decision Making - Medical Decision Making This patient presents with a headache most consistent with migraine. Diff erential diagnosis includes migraine versus tension type headache. No headache red flags. Neurologic exam without evidence of meningismus, focal neurologic findings.Based on the patient's history and physical there is very low clinical suspicion for significant intracranial pathology. The headache was NOT sudden onset, NOT maximal at onset, there are NO neurologic findings, the patient does NOT have a fever, the patient does NOT have any jaw claudication, the patient does NOT endorse a clotting disorder, patient DENIES any trauma or eye pain and the headache is NOT associated with dizziness or ataxia. Presentation not consistent with acute intracranial bleed to include SAH (lack of risk factors, headache history). Presentation not consistent with acute [employer] infection to include meningitis or brain abscess, Temporal arteritis unlikely, as is acute angle closure glaucoma given history and physical findings. Presentation not consistent with other acute, emergent causes of headache at this time. Plan to treat symptomatically with pain medication. No indication for imaging/LP at this time. Plan: pain medication, CT scan was deferred due to a normal neuro, serial reassessment Critical care attestation.: If time is entered above; I have spent that time in minutes in the direct care of this critically ill patient, excluding procedure time. ED Disposition Clinical Impression: Cephalgia Disposition: DC- TO HOME OR SELFCARE Is pt being admited?: No Does the pt Need Aspirin: No Condition: Stable Instructions: Migraine Headache (ED), Acute Headache (ED) Prescriptions: Butalbit/Acetamin/Caff/Codeine [Fioricet-Cod 72-158-89-30 Cap] 1 each PO Q6H PRN #20 capsule PRN Reason: Headache Referrals: [facility] [Provider Group] - 3-5 Days ARGELIA SMYTH MD [Staff Physician] - 3-5 Days
== END 2020-05-20 22:58 | disposition home or self-care (01) ==
LOC: ED 18:00
DX: R51.9 Headache, unspecified (principal); I10 Essential (primary) hypertension; Z88.8 Allergy status to other drugs, medicaments and biological substances; Z91.041 Radiographic dye allergy status; Z98.51 Tubal ligation status; Z98.890 Other specified postprocedural states; Z79.899 Other long term (current) drug therapy
CPT/HCPCS: 96361; 96374; 96375; 99282; J1200; J1885; J2765; J7030